=== PATIENT | male | born 1970 | race Caucasian/White ===

== ENCOUNTER 2025-02-12 15:59 | Inpatient (IN) | payer OTHER, SELFPAY ==
--- NOTE | 2025-02-11 14:02 | PAT.ANE_ITS ---
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 When Was Last Pacemaker Check QUESTION #4 FULL TEXT: You/Your Family Experience fever (hyperthermia) with Anesthesia Last Oral Intake Last Oral intake: Last Oral Intake NPO since Meds taken in AM with sips of water? Meds patient instructed to take am of surgery PONV PONV - retail beauty specialist: PONV - retail beauty specialist Female No 02/10/25 12:12 HX of Motion Sickness No 02/10/25 12:12 HX of N/V After Surgery No 02/10/25 12:12 Non-Smoker Yes 02/10/25 12:12 Duration of Surgery greater Yes 02/10/25 12:12 than 60 minutes Number of Risk Factors 2 02/10/25 12:12 PONV Score Moderate Risk 02/10/25 12:12 Respiratory Assessment Respiratory Assessment - retail beauty specialist: Respiratory Tract Infection Hx - retail beauty specialist Hx Respiratory Tract Infection No 02/10/25 12:12 STOP Sleep Apnea STOP Sleep Apnea - retail beauty specialist: STOP Sleep Apnea - retail beauty specialist Hx Hypertension Yes: NEVER MEDICATED 02/10/25 12:12 Hx Sleep Apnea No 02/10/25 12:12 CPAP BIPAP Do you snore loudly (louder Yes 02/10/25 12:12 than talking or can be heard Do you often feel tired/ No 02/10/25 12:12 fatigued/ sleepy during daytime? Has anyone observed you stop Yes 02/10/25 12:12 breathing during sleep? STOP Results Positive 02/10/25 12:12 QUESTION #5 FULL TEXT : Do you snore loudly (louder than talking or can be heard through closed doors)? 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 Specify any problems Hx of Preganancy in last 3 N/A 02/10/25 12:12 Months Nurse Filling Out Transfusion DSCHRIBER 02/10/25 12:12 & Questions: Date: 02/10/25 02/10/25 12:12 Time: 12:15 02/10/25 12:12 Patient unable to answer at this time (ie. confused, unrespo /Reproduction History /Reproductive History - retail beauty specialist: /Reproductive Hx- retail beauty specialist Hx Now No 02/10/25 12:12 Gestational Age (in weeks): EDC: Hx Hx Para Hx Section SAB No 02/10/25 12:12 PFSH Medical History (Updated 02/10/25 @ 12:22 by Terrie Caldwell) Wears glasses Bladder disease Restless legs Shortness of breath on exertion Non-smoker Leg cramps History of pain when walking History of edema Hypertension Home Medications ?Medication ?Instructions ?Recorded ?Last Taken ?Type NK 02/10/25 Unknown History Allergy/AdvReac Type Severity Reaction Status Date / Time No Known Allergies Allergy Verified 02/10/25 12:10 Surgical History (Updated 02/10/25 @ 12:22 by Terrie Caldwell) No history of previous surgery Social History Smoking Status: Never smoker Audit: Pertinent Findings Pertinent Findings EKG Perinent findings: February 10, 2025. Sinus rhythm. Probable LAE. Borderline left axis deviation. RSR' in V1 and V2. Additional pertinent findings: February 10, 2025. Creatinine is 2.39 Recommendation Anesthesia Recommendation Anesthesia recommendation: OPTIMIZED for anesthesia
[2025-02-12] VITALS (17 sets, daily range): BP systolic 76–185; BP diastolic 40–96; PULSE 63–90; RESP 14–18; TEMP 36.1–36.9; O2SAT 85–100; BMI 36.1
[2025-02-12] MEDS: Lactated Ringers 1,000 ML 15 ML IV (11:13)
--- NOTE | 2025-02-12 11:56 | PRE.ANES_ITS ---
ASA Classification* ASA Classification ASA Classification: 2 Assessment & Plan Anesthesia* Anesthesia Assessment Anesthesia Assessment: Discussed sedation and/or anesthesia options, risks, benefits, and alternatives with patient/parents/legal guardian/POA. Questions invited. The patient/parents/legal guardian/POA seems to understand and agrees to proceed with anesthesia plan. Reviewed the physical assessment, medical history, allergy history and patient home medications list prior to surgery/procedure/anesthetic and documented any changes. Performed airway and anesthesia risk assessments. Anesthesia Type Anesthesia Type: General History Source History Obtained from:: Patient and Chart Anesthesia Focused Assessment* Temperature: 98.0 F Pulse Rate: 63 Blood Pressure: 185/96 Respiratory Rate: 16 Pulse Ox: 100 Oxygen Delivery Method: Room Air Airway Assessment Mouth opens: >3 cm Mallampati Score: III Teeth Condition: Intact and Missing (Patient is missing right upper molar. 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 When Was Last Pacemaker Check QUESTION #4 FULL TEXT: You/Your Family Experience fever (hyperthermia) with Anesthesia Last Oral Intake Last Oral intake: Last Oral Intake NPO since 23:00 02/12/25 11:00 Meds taken in AM with sips of No 02/12/25 11:00 water? Meds patient instructed to take am of surgery PONV PONV - registered land surveyor: PONV - registered land surveyor Female No 02/10/25 12:12 HX of Motion Sickness No 02/10/25 12:12 HX of N/V After Surgery No 02/10/25 12:12 Non-Smoker Yes 02/10/25 12:12 Duration of Surgery greater Yes 02/10/25 12:12 than 60 minutes Number of Risk Factors 2 02/10/25 12:12 PONV Score Moderate Risk 02/10/25 12:12 Height & Weight Height & Weight: Anesthesia: Height & Weight Height 5 ft 6 in 02/12/25 11:00 Weight: 101.437 kg 02/12/25 11:00 Body Mass Index (BMI) 36.1 02/12/25 11:00 Respiratory Assessment Respiratory Assessment - registered land surveyor: Respiratory Tract Infection Hx - registered land surveyor Hx Respiratory Tract Infection No 02/10/25 12:12 STOP Sleep Apnea STOP Sleep Apnea - registered land surveyor: STOP Sleep Apnea - registered land surveyor Hx Hypertension Yes: NEVER MEDICATED 02/10/25 12:12 Hx Sleep Apnea No 02/10/25 12:12 CPAP BIPAP Do you snore loudly (louder Yes 02/10/25 12:12 than talking or can be heard Do you often feel tired/ No 02/10/25 12:12 fatigued/ sleepy during daytime? Has anyone observed you stop Yes 02/10/25 12:12 breathing during sleep? STOP Results Positive 02/10/25 12:12 QUESTION #5 FULL TEXT : Do you snore loudly (louder than talking or can be heard through closed doors)? Tobacco Use History Tobacco Use History - registered land surveyor: Tobacco Use History - registered land surveyor Tobacco Use Smoking Status Never smoker 02/10/25 12:12 Hx Tobacco Use No 02/10/25 12:12 Years Smoking Packs Smoked per Day Smoking Cessation Date was within the last 15 years Hx Smoking Cessation Date Hx Smoking Cessation Counseling Hematologic Medial History Hematologic Hx - registered land surveyor: Hematologic Medical Hx - scale shooter Hx of Blood Transfusion No 02/10/25 12:12 Hx of Transfusion in last 3 No 02/10/25 12:12 Months Date of Last Transfusion (if within last 3 months) Ever experience any problems No 02/10/25 12:12 with transfusion(s)? Specify any problems Hx of Preganancy in last 3 N/A 02/10/25 12:12 Months Nurse Filling Out Transfusion DSCHRIBER 02/10/25 12:12 & Questions: Date: 02/10/25 02/10/25 12:12 Time: 12:15 02/10/25 12:12 Patient unable to answer at this time (ie. confused, unrespo /Reproduction History /Reproductive History - registered land surveyor: /Reproductive Hx- registered land surveyor Hx Now No 02/10/25 12:12 Gestational Age (in weeks): EDC: Hx Hx Para Hx Section SAB No 02/10/25 12:12 Active Medications Active Medications: Current Medications Generic Name Dose Route Start Last Admin Trade Name Freq PRN Reason Stop Dose Admin Lactated Ringer's 1,000 mls @ 15 mls/hr 02/12/25 11:00 02/12/25 11:13 IV 15 mls/hr .Q48H ANGIE Administration PFSH Medical History Wears glasses Bladder disease Restless legs Shortness of breath on exertion Non-smoker Leg cramps History of pain when walking History of edema Hypertension Home Medications ?Medication ?Instructions ?Recorded ?Last Taken ?Type NK 02/10/25 Unknown History Allergy/AdvReac Type Severity Reaction Status Date / Time No Known Allergies Allergy Verified 02/12/25 10:59 Surgical History No history of previous surgery no surgical history Social History Smoking Status: Never smoker Review of Systems (Anesthesia) ROS Narrative System reviewed and no additional complaints, except as documented.
[2025-02-12] MEDS: Midazolam 2 MG/2 ML Syringe IV (12:24)
[2025-02-12] MEDS: Lidocaine 1% (5 ml sdv) 5 ML Vial IV (12:30)
--- NOTE | 2025-02-12 12:30 | BLA_PTH ---
PATIENT: ALEXSANDRA DIETZ LOC: [facility] U#:[id number] AGE/SX: 54/M ROOM: [facility] [place] RE02/12/[address]: Dr. Juilo Bey MD : 1970 BED: 1 DIS: 02/14/2025 SPEC #: [id number] RECD: 02/15/25 07:24 STATUS: MICHAEL REDahlia #: [id number] SERVANDO: 02/12/25 12:[address]: Julio Bey DEPT: SURGICAL PATHOLOGY RECD BY: Ede Sanchez ENTERED: 02/15/25 10:30 SP TYPE: BLADDER BX OTHR DR: No Primary Care Phys Tissues: A - Urinary bladder, NOS Procedures: Surgery Specimen Level V HEADER OPERATION: Cysto, transurethral resection bladder PRE-OP DIAGNOSIS: Large bladder mass TISSUE SUBMITTED: A- Bladder tumor MICROSCOPIC DIAGNOSIS A. Bladder tumor, transurethral resection: - Noninvasive papillary urothelial carcinoma, high grade - see Comment. - Lamina propria invasion is not identified. - Muscularis propria is not identified. COMMENT Selected slides/images were reviewed in intradepartmental consultation by Dr Daphney Marie and Dr Bjorn Santacruz ([facility] division, [facility]). MICROSCOPIC DESCRIPTION Slides are reviewed. GROSS DESCRIPTION A. Received in formalin labeled with the patient's name and date of . Designated as bladder tumor is a 172 g, 14.5 x 11.5 x 3.6 cm aggregate of jensen-pink to light brown-perales rubbery to friable tissue fragments and clotted blood. Systems Management Consultant sections are submitted in 10 cassettes. NC 02/15/2025 CPT:[id number]
[2025-02-12] MEDS: Cefazolin 1 GM/5 ML Vial 2 GM IV (12:35)
[2025-02-12] MEDS: Lactated Ringers 2,000 ML 2000 ML IV (13:39)
[2025-02-12] MEDS: fentaNYL 100 MCG/2 ML Ampul 200 MCG IV (13:42)
--- NOTE | 2025-02-12 16:03 | PCM.OPRPT ---
Operative Report (Standard) Operative Information Date of Procedure: 02/12/25 Pre-Operative Diagnosis: Very large bladder tumor Post-Operative Diagnosis: The same Surgery/Procedure Performed: Resection of the tumor over 7 cm in size, difficult case extra time terrazzo worker helper: No Type of Anesthesia: General RN Documented Start/Stop Times: Operation Date: 02/12/25 12:30 Case Time Into Pre-Op 02/12/25 10:45 Anesthesia Start 02/12/25 12:24 Into Room 02/12/25 12:24 Procedure Start 02/12/25 12:40 Procedure End 02/12/25 15:53 Anesthesia End 02/12/25 16:03 Out of Room 02/12/25 16:03 Procedure Start Time: 12:40 Procedure Stop Time: 16:04 Select all DRAINS/GRAFTS/IMPLANTS that apply: None Estimated Blood Loss: 500 cc Specimen collected: Yes Description of specimen(s) removed: Large bladder tumor Description of surgery: This is a 54-year-old male who unfortunately has been bleeding for about 5 years now and has finally sought medical attention on the office a did an ultrasound and could see extremely large mass within the bladder difficult to tell if this mass was invasive into the bladder muscle or was just a very large papillary tumor I suspected the very large papillary tumor so again attempted do a complete resection of this tumor as long as it is safe. Patient was taken back to the operating room and underwent a general anesthetic with intubation and paralyzation and then went into the bladder with a 26 Spanish continuous-flow resectoscope essentially he had a papillary tumor that was coming from the right lateral wall left lateral wall and anterior bladder neck it was all extending into the middle of the bladder started off by resecting from the middle of the bladder towards the patient's left took a long time was able to resect all the tumor coming off the left side when I got down to the muscle it did not appear to be in muscle invasive just extremely large nonmuscle invasive bladder cancer and then I started resection on the right side and he worked my way all the way into the anterior bladder and was able to resect the entire tumor and then there is also tumor within the prostatic fossa so the resected tumor out from within the prostatic fossa cauterized is much as possible did have a lot of blood loss because a long case extremely long difficult case resecting a lot of tissue but in the end I felt like it resected the entire all the major tumors completely with a pry bring him back for a second look resection in a few weeks and 24 Spanish catheter was put in the bladder and continuous bladder irrigation he was taken back to the PACU in stable condition and will admit him to the hospital for irrigation after extremely long resection extremely long time to resect took several hours Surgical Findings: Extremely large tumor in the bladder multiple areas extensively covering the bladder resected completely Complications Complications: No Admit VTE Documentation VTE Present on Admission: No VTE Mechan Device Prophylaxis: SCD's VTE Pharm Prophylaxis ordered?: No
--- NOTE | 2025-02-12 16:13 | PCM.POST.ANE ---
Anesthesia: Postop Eval I Current Vital Signs Temperature: 97.0 F Pulse Rate: 76 Blood Pressure: 80/43 Respiratory Rate: 16 Pulse Ox: 95 Oxygen Delivery Method: Room Air Assessment Airway patent: Yes Spontaneous unlabored respirations: Yes Mental status: Awake nausea: No Vomiting: No Anesthesia Complication: No Fluid Hydration Crystalloid volume administer (ml): 1,700 Total IV fluid infused: 1,700 Progress Note Anesthesia document: Postop Eval 1 completed: Yes
[2025-02-12] MEDS: LACTATED RINGERS 500 ML 999 ML IV (16:15)
[2025-02-12] MEDS: 0.9% Normal Saline (1000mL) 1,000 ML 125 ML IV (18:20)
--- NOTE | 2025-02-12 21:29 | POSTOPAN2_ITS ---
Anesthesia Postop Eval I Sum Postop Eval Completion status Anesthesia document: Postop Eval 1 completed: Yes Anesthesia Postop Eval I Summary Anesthesia Postop Eval I Summary: Anesthesia Postop Eval I: Assessment Summary Airway patent Yes 02/12/25 16:14 [email or web address] Spontaneous unlabored Yes 02/12/25 16:14 PERSONNEL [email or web address] respirations Mental status Awake 02/12/25 16:14 [email or web address] nausea No 02/12/25 16:14 [email or web address] Vomiting No 02/12/25 16:14 PERSONNEL [email or web address] Anesthesia Postop Eval I: Fluid Summary Crystalloid volume administer 1,700 02/12/25 16:14 [email or web address] (ml) Colloids volume administered ( ml) Blood Product volume administered (ml) Total IV fluid infused 1,700 02/12/25 16:14 [email or web address] [email or web address] Anesthesia Postop Eval I: Summary Notes Anesthesia Complication No 02/12/25 16:14 [email or web address] Anesthesia Complication Comment: Post-operative progress note Anesthesia: Postop Eval II Evaluation Mental status: Awake and Calm Pain Level: 1 nausea: No Vomiting: No Complications Anesthesia Complication: No
--- NOTE | 2025-02-12 21:29 | PCM.POSTANE2 ---
Anesthesia Postop Eval I Sum Postop Eval Completion status Anesthesia document: Postop Eval 1 completed: Yes Anesthesia Postop Eval I Summary Anesthesia Postop Eval I Summary: Anesthesia Postop Eval I: Assessment Summary Airway patent Yes 02/12/25 16:14 HEALTH [email or web address] Spontaneous unlabored Yes 02/12/25 16:14 HEALTH CARE [email or web address] respirations Mental status Awake 02/12/25 16:14 HEALTH [email or web address] nausea No 02/12/25 16:14 HEALTH [email or web address] [email or web address] Vomiting No 02/12/25 16:14 HEALTH CARE [email or web address] Anesthesia Postop Eval I: Fluid Summary Crystalloid volume administer 1,700 02/12/25 16:14 HEALTH [email or web address] (ml) Colloids volume administered ( ml) Blood Product volume administered (ml) Total IV fluid infused 1,700 02/12/25 16:14 HEALTH CARE [email or web address] Anesthesia Postop Eval I: Summary Notes Anesthesia Complication No 02/12/25 16:14 HEALTH [email or web address] Anesthesia Complication Comment: Post-operative progress note Anesthesia: Postop Eval II Evaluation Mental status: Awake and Calm Pain Level: 1 nausea: No Vomiting: No Complications Anesthesia Complication: No
[2025-02-12] MEDS: Cefazolin 1 GM/50 ML BAG IV (21:57)
[2025-02-13 01:39] VITALS: BP 124/83; PULSE 85; RESP 16; TEMP 37.2; O2SAT 94
[2025-02-13] MEDS: 0.9% Normal Saline (1000mL) 1,000 ML 125 ML IV (02:22)
[2025-02-13] MEDS: Cefazolin 1 GM/50 ML BAG IV (05:29)
[2025-02-13 05:36] VITALS: BP 130/84; PULSE 83; RESP 16; TEMP 37.3; O2SAT 96
[2025-02-13 06:42] LABS: Hematocrit 27.7 % (40-54); Hemoglobin 9.4 g/dL (13.0-16.5); Immature Granulocytes Count 0.090 X10^3/uL (0.0-0.0); Mean Corp Hgb Conc 33.9 g/dL (32-36); Mean Corpuscular Volume 92.0 fL (80-94); Mean Platelet Vol. 9.5 fl (6.2-12.0); NRBC Flagged by Analyzer 0 % (0-5); Platelet Count 404 K/mm3 (150-450); RBC Distribution Width CV 13.3 % (11.6-14.6); RBC Distribution Width SD 45.0 fl (35.1-43.9); Red Blood Count 3.01 M/mm3 (4.6-6.2); White Blood Count 17.1 K/mm3 (4.4-11.0)
[2025-02-13 07:02] LABS: Anion Gap 12 (5-15); BUN 28 mg/dL (4-19); BUN/Creat Ratio 14.1 RATIO (10-20); Calcium,Total 8.2 mg/dL (7.6-11.0); Carbon Dioxide 20.6 mmol/L (21.0-32.0); Chloride 105 mmol/L (98-108); Estimated Creatinine Clearance 48.61 ml/min (50-250); Glucose 147 mg/dL (70-99); Potassium 4.3 mmol/L (3.3-5.1)
--- NOTE | 2025-02-13 07:34 | PN.URO_ITS ---
Subjective Subjective Status post resection of extremely large mass in his bladder that was bladder cancer, continue with irrigation Hep-Lock fluids and start Lovenox he can ambulate with irrigation hopefully tomorrow will do a voiding trial. Objective Data Objective Data Vital Signs: Vital Signs Temp Pulse Resp BP Pulse Ox O2 Del Method O2 Flow Rate 99.2 F H 83 16 130/84 H 96 Room Air 2 02/13/25 05:36 02/13/25 05:36 02/13/25 05:36 02/13/25 05:36 02/13/25 05:36 02/13/25 05:36 02/12/25 17:00 Oxygen Flow Rate (L/min) 2 Oxygen Delivery Method Room Air Weight: 101.437 kg Body Mass Index (BMI) 36.1 Intake & Output: Intake and Output for Last 24 Hours 02/11/25 02/12/25 02/13/25 23:59 23:59 23:59 Intake Total 2150 / 2150 2350 / 2350 Output Total 2400 / 2400 1500 / 1500 Balance -250 / -250 850 / 850 Lab / Micro Data 02/13/25 06:06 02/13/25 06:06 Labs: Laboratory Results - last 24 hr 02/13/25 06:06: WBC 17.1 H, RBC 3.01 L, Hgb 9.4 L, Hct 27.7 L, MCV 92.0, MCH 31.2, MCHC 33.9, RDW Std Deviation 45.0 H, RDW Coeff of Marial[place] 13.3, Plt Count 404, MPV 9.5, Immature Gran % (Auto) 0.500, Neut % (Auto) 83.1 H, Lymph % (Auto) 9.8 L, [place] % (Auto) 6.5, Eos % (Auto) 0.0, Baso % (Auto) 0.1, Absolute Neuts (auto) 14.2 H, Absolute Lymphs (auto) 1.68, Nucleated RBC % 0, Sodium 137, Potassium 4.3, Chloride 105, Carbon Dioxide 20.6 L, Anion Gap 12, BUN 28 H, Creatinine 1.96 H, Estim Creat Clear Calc 48.61 L, Est GFR (MDRD) Non-Af 40 L, BUN/Creatinine Ratio 14.1, Glucose 147 H, Calcium 8.2
[2025-02-13 08:56] VITALS: O2SAT 96
[2025-02-13 09:35] VITALS: BP 125/80; PULSE 88; RESP 16; TEMP 36.9; O2SAT 96
--- NOTE | 2025-02-13 10:30 | CASEMGMT ---
GISELLA VARGAS Assessment Face to Face with patient for initial transition planning/care coordination assessment. GISELLA VARGAS introduced self and role at [facility], pt voices understanding. Pt is A&Ox4 and is resting comfortably in the chair and is calm. Care providers, pharmacy, and demographics verified. PCP: No PCP - Provider list given Specialists: Maida Monroe Pharmacy: [facility] Insurance: IBA Prescription Benefit: None - Educated about free services such as Good Rx LNOK: Trisha Kimo (W) Living Arrangements: Pt lives with his and 2 children (Ages 15 and 17) in a single story home with a total of 25 steps to get into the home. Pt states that he is indep and denies concerns regarding managing the steps when he gets home. ADLs/IADLs: See above. Transportation: Self, DME: Denies HHC/SNF: Denies Pt?s goal: Home Plan: Home with family once medically ready, follow for rx costs. Otherwise, pt denies any needs and states that he feels safe with this plan. Soniya Robb RN, CM
[2025-02-13 15:20] VITALS: BP 149/89; PULSE 81; RESP 16; TEMP 37.1; O2SAT 98
[2025-02-13 21:53] VITALS: BP 120/73; PULSE 89; RESP 16; TEMP 37.2; O2SAT 97
[2025-02-14 03:32] VITALS: BP 132/74; PULSE 86; RESP 18; TEMP 37.1; O2SAT 96
[2025-02-14 07:17] VITALS: O2SAT 95
[2025-02-14 07:34] LABS: Hematocrit 25.7 % (40-54); Hemoglobin 8.4 g/dL (13.0-16.5); Immature Granulocytes Count 0.040 X10^3/uL (0.0-0.0); Mean Corp Hgb Conc 32.7 g/dL (32-36); Mean Corpuscular Volume 93.5 fL (80-94); Mean Platelet Vol. 9.8 fl (6.2-12.0); NRBC Flagged by Analyzer 0 % (0-5); Platelet Count 389 K/mm3 (150-450); RBC Distribution Width CV 13.4 % (11.6-14.6); RBC Distribution Width SD 45.7 fl (35.1-43.9); Red Blood Count 2.75 M/mm3 (4.6-6.2); White Blood Count 11.0 K/mm3 (4.4-11.0)
[2025-02-14 07:42] VITALS: BP 134/81; PULSE 60; RESP 16; TEMP 36.5; O2SAT 100
[2025-02-14 07:52] LABS: Anion Gap 10 (5-15); BUN 23 mg/dL (4-19); BUN/Creat Ratio 14.3 RATIO (10-20); Calcium,Total 8.5 mg/dL (7.6-11.0); Carbon Dioxide 24.3 mmol/L (21.0-32.0); Chloride 109 mmol/L (98-108); Estimated Creatinine Clearance 60.69 ml/min (50-250); Glucose 101 mg/dL (70-99); Potassium 3.9 mmol/L (3.3-5.1)
--- NOTE | 2025-02-14 08:55 | DS.PCM_ITS ---
Providers Date of Admission: 02/12/25 Date of Discharge: 02/14/25 Primary Care Physician: Alisha Primary Care Phys Diagnosis Discharge Diagnosis (1) Bladder cancer: Status: Acute Code(s): C67.9 - Malignant neoplasm of bladder, unspecified Medications at Discharge Home Medications ciprofloxacin HCl 500 mg tablet (Cipro) 500 mg PO BID #14 tabs 02/14/25 oxycodone 5 mg tablet 5 mg PO Q6H PRN pain 3 days #10 tabs 02/14/25 Hospital Course Summary of Care Provided Hospital Course: 54-year-old male was found to have an extremely large bladder tumor, he underwent a transurethral resection of this tumor took several hours on Saturday he stayed with a catheter for irrigation this morning we remove the catheter as long as he is able to urinate okay he can go home today without the catheter with antibiotics and some mild pain medicine and follow-up in my office for further care Weight / BMI Weight Weight: 101.437 kg Body Mass Index (BMI) 36.1 ABG / Lab / Microbiology Data 02/14/25 06:20 02/14/25 06:20 Laboratory: Laboratory Results - last 24 hr 02/14/25 06:20: WBC 11.0, RBC 2.75 L, Hgb 8.4 L, Hct 25.7 L, MCV 93.5, MCH 30.5, MCHC 32.7, RDW Std Deviation 45.7 H, RDW Coeff of Marialuisa 13.4, Plt Count 389, MPV 9.8, Immature Gran % (Auto) 0.400, Neut % (Auto) 69.7, Lymph % (Auto) 19.5, [place] % (Auto) 7.3, Eos % (Auto) 2.8, Baso % (Auto) 0.3, Absolute Neuts (auto) 7.7, Absolute Lymphs (auto) 2.15, Nucleated RBC % 0, Sodium 143, Potassium 3.9, C hloride 109 H, Carbon Dioxide 24.3, Anion Gap 10, BUN 23 H, Creatinine 1.57 H, Estim Creat Clear Calc 60.69, Est GFR (MDRD) Non-Af 52 L, BUN/Creatinine Ratio 14.3, Glucose 101 H, Calcium 8.5 D/C Instructions DC O2, CPAP, BIPAP Needs Home O2 Discharge instructions: No Meaningful Use Info Meaningful Use Meaningful Use Diagnoses (Choose all that apply): None applicable Discharge Plan Admission Admit Date/Time: 02/12/25 15:59 Primary Reason for Your Visit: very large bladder cancer Attending Provider: Julio Bey Primary Care Provider: Care Physician,No Primary Discharge Orders/Prescriptions Prescriptions: New ciprofloxacin HCl [Cipro] 500 mg tablet 500 mg PO BID Qty: 14 0RF oxycodone 5 mg tablet 5 mg PO Q6H PRN (Reason: pain) 3 Days Qty: 10 0RF Referrals / Follow Up: Julio Bey MD [Med Staff - Active Staff] - Care Physician,No Primary [Primary Care Provider] - Disposition Disposition (needs filled in before D/C Order can be placed): Home, Self Care
[2025-02-14 14:00] VITALS: BP 156/86; PULSE 83; RESP 16; TEMP 37.1; O2SAT 97
== END 2025-02-14 14:20 | disposition home or self-care (01) | DRG 670 ==
LOC: ACINP 15:59 → MS3 17:05
PROVIDERS: Admitting Provider Urology; Referring Provider Urology; Visit Provider Urology
PROC: 0TBB8ZZ Excision of Bladder, Via Natural or Artificial Opening Endoscopic (ICD-10-PCS; principal; 2025-02-12 12:20)
DX: C67.9 Malignant neoplasm of bladder, unspecified (principal)
CPT/HCPCS: 36415; 80048; 85025; 88305; 88307; 94668; J2405

== ENCOUNTER → 2025-04-16 | Outpatient (CLI) | payer OTHER, SELFPAY ==
--- NOTE | 2025-04-16 08:00 | BLA_PTH ---
PATIENT: ALEXSANDRA DIETZ LOC: [facility] U#:[id number] AGE/SX: 54/M ROOM: RE04/16/[address]: Dr. Julio Bey MD : 1970 BED: DIS: 04/16/2025 SPEC #: [id number] RECD: 04/16/25 14:47 STATUS: MICHAEL REQ #: [id number] SERVANDO: 04/16/25 08:[address]: Julio Bey DEPT: SURGICAL PATHOLOGY RECD BY: Ede Sanchez ENTERED: 04/16/25 15:12 SP TYPE: BLADDER BX OTHR DR: No Primary Care Phys Tissues: A - Urinary bladder, NOS Procedures: Surgery Specimen Level IV HEADER OPERATION: Transurethral resection of bladder tumor PRE-OP DIAGNOSIS: Malignant neoplasm of overlapping sites of bladder, neoplasm of uncertain behavior of bladder TISSUE SUBMITTED: A- Bladder tumor MICROSCOPIC DIAGNOSIS A. Bladder, transurethral resection of bladder tumor: - Invasive high grade urothelial carcinoma. - Lamina propria involved. - Muscularis propria not identified. MICROSCOPIC DESCRIPTION Slides are reviewed. GROSS DESCRIPTION A. Received in formalin labeled with the patient's name and date of . Designated as bladder cancer is a 3.7 x 2.7 x 0.5 cm aggregate of jensen-pink to red, irregular cauterized tissue fragments and clotted blood. Also within the container is a 0.7 x 0.5 cm opaque portion of apparent hardware. The specimen is entirely submitted, except for the portion of hardware, in 3 cassettes. [id number]
--- OUTSIDE RECORDS SUMMARY | 2025-04-16 16:56 | XMS RPT_ITS | CCD ---
Author Organization [facility] Care Team Providers Care Papeterie Table Assembler Name Role Phone ART FELDMAN, DR JULIO PRITCHARD Attending Elli Cordova MD, Dr. Julio Pritchard Admit Provider Art FELDMAN, Dr. Julio Pritchard Attending Provider Art FELDMAN, Dr. Julio Pritchard Referring Provider Care Physician, No Primary Primary Care Provider Unavailable Julio Cordova Admitting Unavailable Julio Cordova Attending Unavailable Julio Cordova Referring Unavailable Care Physician, No Primary Primary Care Unava ilable Medications Current Medications Medication Drug Class(es) Dates Sig (Normalized) Sig (Original) ciprofloxacin 500 mg oral tablet (1 source) Quinolone Antimicrobial Start: 02-14-2025 take 1 tablet by mouth twice daily Ciprofloxacin Hcl (Cipro) 500 mg tablet Active 500 mg PO TWICE A DAY 14 0 February 14, 2025 12:00am oxyCODONE hydrochloride 5 mg oral tablet (1 source) Opioid Agonist Start: 02-14-2025 take 1 tablet by mouth every six hours as needed for pain Oxycodone 5 mg tablet Active 5 mg PO EVERY 6 HOURS as needed for pain 10 3 0 February 14, 2025 Malignant neoplasm of urinary bladder Malignant neoplasm of bladder, unspecified Problems Problem Classification Problem Date Documented Da te Episodic/Chronic Cancer of bladder (2 sources) Malignant tumor of urinary bladder; Translations: [Malignant neoplasm of bladder, unspecified] 02-14-2025 Chronic 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, [address] BUN/CRE Normal 10-20 [facility] Comment on above: Result Comment: Canc elled via OM: Order cancelled - Patient discharged Performed By: #### L 500.2500, L100.0100 #### [facility] [address] [place], [address] Calcium Normal 7.6-11.0 [facility] Comment on above: Result Comment: Canc elled via OM: Order cancelled - Patient discharged Performed By: #### L 500.2500, L100.0100 #### [facility] [address] [place], [address] CL Normal 98-108 [facility] Comment on above: Result Comment: Canc elled via OM: Order cancelled - Patient discharged Performed By: #### L 500.2500, L100.0100 #### [facility] [address] [place], [address] CO2 Normal 21.0-32.0 [facility] Comment on above: Result Comment: Canc elled via OM: Order cancelled - Patient discharged Performed By: #### L 500.2500, L100.0100 #### [facility] [address] [place], [address] CREAT,SERUM Normal 0.70-1.20 [facility] Comment on above: Result Comment: Canc elled via OM: Order cancelled - Patient discharged Performed By: #### L 500.2500, L100.0100 #### [facility] [address] [place], [address] eGFR Normal >60 [facility] Comment on above: Result Comment: Canc elled via OM: Order cancelled - Patient discharged Performed By: #### L 500.2500, L100.0100 #### [facility] [address] [place], [address] GAP Normal 5-15 [facility] Comment on above: Result Comment: Canc elled via OM: Order cancelled - Patient discharged Performed By: #### L 500.2500, L100.0100 #### [facility] [address] [place], [address] GLU Normal 70-99 [facility] Comment on above: Result Comment: Canc elled via OM: Order cancelled - Patient discharged Performed By: #### L 500.2500, L100.0100 #### [facility] [address] [place], [address] Potassium Normal 3.3-5.1 [facility] Comment on above: Result Comment: Canc elled via OM: Order cancelled - Patient discharged Performed By: #### L 500.2500, L100.0100 #### [facility] [address] [place], [address] Basic Metabolic Profile (BMP) Normal 133-145 [facility] Comment on above: Result Comment: Canc elled via OM: Order cancelled - Patient discharged Performed By: #### L 500.2500, L100.0100 #### [facility] [address] [place], [address] CBC W/Diff, Automatedon 09-0 -2024 Absolute Neut Normal 2.0-7.7 [facility] Comment on above: Result Comment: Canc elled via OM: Order cancelled - Patient discharged Performed By: #### L 500.2500, L100.0100 #### [facility] [address] [place], [address] HCT Normal 40-54 [facility] Comment on above: Result Comment: Canc elled via OM: Order cancelled - Patient discharged Performed By: #### L 500.2500, L100.0100 #### [facility] [address] [place], [address] HGB Normal 13.0-16.5 [facility] Comment on above: Result Comment: Canc elled via OM: Order cancelled - Patient discharged Performed By: #### L 500.2500, L100.0100 #### [facility] [address] [place], [address] MCH Normal 27.0-32.0 [facility] Comment on above: Result Comment: Canc elled via OM: Order cancelled - Patient discharged Performed By: #### L 500.2500, L100.0100 #### [facility] [address] [place], [address] MCHC Normal 32-36 [facility] Comment on above: Result Comment: Canc elled via OM: Order cancelled - Patient discharged Performed By: #### L 500.2500, L100.0100 #### [facility] [address] [place], [address] MCV Normal 80-94 [facility] Comment on above: Result Comment: Canc elled via OM: Order cancelled - Patient discharged Performed By: #### L 500.2500, L100.0100 #### [facility] [address] [place], [address] NEUT% Normal 47-70 [facility] Comment on above: Result Comment: Canc elled via OM: Order cancelled - Patient discharged Performed By: #### L 500.2500, L100.0100 #### [facility] [address] [place], [address] PLT Normal 150-450 [facility] Comment on above: Result Comment: Canc elled via OM: Order cancelled - Patient discharged Performed By: #### L 500.2500, L100.0100 #### [facility] [address] [place], [address] RBC Normal 4.6-6.2 [facility] Comment on above: Result Comment: Canc elled via OM: Order cancelled - Patient discharged Performed By: #### L 500.2500, L100.0100 #### [facility] [address] [place], [address] RDW CV Normal 11.6-14.6 [facility] Comment on above: Result Comment: Canc elled via OM: Order cancelled - Patient discharged Performed By: #### L 500.2500, L100.0100 #### [facility] [address] [place], [address] RDW SD Normal 35.1-43.9 [facility] Comment on above: Result Comment: Canc elled via OM: Order cancelled - Patient discharged Performed By: #### L 500.2500, L100.0100 #### [facility] [address] [place], [address] WBC Normal 4.4-11.0 [facility] Comment on above: Result Comment: Canc elled via OM: Order cancelled - Patient discharged Performed By: #### L 500.2500, L100.0100 #### [facility] [address] [place], [address] Absolute lymphocyte countOrd ered By: Julio Cordova on 02-14-2025 Lymphocytes Auto (Unsp spec) [#/Vol] 2.15 10*3/uL 0.83-4.51 [facility] Absolute neutrophil countOrd ered By: Julio Cordova on 02-14-2025 Neutrophils (Bld) [#/Vol] 7.7 10*3/uL 2.0-7.7 [facility] Anion gap in Serum or Plasma Ordered By: Julio Cordova on 02-14-2025 Anion gap [Moles/Vol] 10 mmol/L 5-15 [facility] Automated lymphocyte count a s percentage of total leukocytesOrdered By: Julio Cordova on 02-14-2025 Lymphocytes/100 WBC Auto (Unsp spec) 19.5 % 19-41 [facility] BUN/creatinine ratioOrdered By: Julio Cordova on 02-14-2025 Urea nitrogen/Creatinine [Mass ratio] 14.3 mg/mg 10- [facility] Basic Metabolic Profile (BMP )on 02-14-2025 BUN/CRE 14.3 RATIO Normal - [facility] Comment on above: Performed By: #### L 100.0100, L500.2500 #### [facility] [address] [place], [address] Calcium [Mass/Vol] 8.5 mg/dL Normal 7.6-11.0 [facility] Comment on above: Performed By: #### L 100.0100, L500.2500 #### [facility] [address] [place], [address] Chloride [Moles/Vol] 109 mmol/L High 98-108 [facility] Comment on above: Performed By: #### L 100.0100, L500.2500 #### [facility] [address] [place], [address] CO2 [Moles/Vol] 24.3 mmol/L Normal 21.0-32.0 [facility] Comment on above: Performed By: #### L 100.0100, L500.2500 #### [facility] [address] [place], [address] Creatinine [Mass/Vol] 1.57 mg/dL High 0.70-1.20 [facility] Comment on above: Performed By: #### L 100.0100, L500.2500 #### [facility] [address] [place], [address] ECRCL 60.69 ml/min Normal 50-250 [facility] Comment on above: Performed By: #### L 100.0100, L500.2500 #### [facility] [address] [place], [address] GAP 10 Normal 5-15 [facility] Comment on above: Performed By: #### L 100.0100, L500.2500 #### [facility] [address] [place], [address] GFR/1.73 sq M.predicted among non-blacks MDRD (S/P/Bld) [Vol rate/Area] 52 mL/min/{1.73_m2} Low >60 [facility] Comment on above: Result Comment: mL/m in/1.73m2 CKD-EPI Creatinine Equation (2020) Performed By: #### L 100.0100, L500.2500 #### [facility] [address] [place], [address] Glucose [Mass/Vol] 101 mg/dL High 70-99 [facility] Comment on above: Performed By: #### L 100.0100, L500.2500 #### [facility] [address] [place], [address] Potassium [Moles/Vol] 3.9 mmol/L Normal 3.3-5.1 [facility] Comment on above: Performed By: #### L 100.0100, L500.2500 #### [facility] [address] [place], [address] Sodium [Moles/Vol] 143 mmol/L Normal 133-145 [facility] Comment on above: Performed By: #### L 100.0100, L500.2500 #### [facility] [address] [place], [address] Urea nitrogen [Mass/Vol] 23 mg/dL High 4-19 [facility] Comment on above: Performed By: #### L 100.0100, L500.2500 #### [facility] [address] [place], [address] Basophil percentageOrdered B y: Julio Cordova on 02-14-2025 Basophils/100 WBC (Bld) 0.3 % 0-1 [facility] CBC W/Diff, Automatedon Absolute Lymph 2.15 X10 3/uL Normal 0.83-4.51 [facility] Comment on above: Performed By: #### L 100.0100, L500.2500 #### [facility] [address] [place], [address] Absolute Neut 7.7 X10 3/uL Normal 2.0-7.7 [facility] Comment on above: Performed By: #### L 100.0100, L500.2500 #### [facility] [address] [place], [address] Basophils/100 WBC (Bld) 0.3 % Normal 0-1 [facility] Comment on above: Performed By: #### L 100.0100, L500.2500 #### [facility] [address] [place], [address] Eosinophils/100 WBC (Bld) 2.8 % Normal 0-5 [facility] Comment on above: Performed By: #### L 100.0100, L500.2500 #### [facility] [address] [place], [address] Erythrocyte distribution width (RBC) [Ratio] 13.4 % Normal 11.6-14.6 [facility] Comment on above: Performed By: #### L 100.0100, L500.2500 #### [facility] [address] [place], [address] Hematocrit (Bld) [Volume fraction] 25.7 % Low 40-54 [facility] Comment on above: Performed By: #### L 100.0100, L500.2500 #### [facility] [address] [place], [address] Hemoglobin (Bld) [Mass/Vol] 8.4 g/dL Low 13.0-16.5 [facility] Comment on above: Performed By: #### L 100.0100, L500.2500 #### [facility] [address] [place], [address] IG% 0.400 Normal 0.0-0.9 [facility] Comment on above: Result Comment: IG% - Immature Granulocytes (promyelocytes, myelocytes and metamyelocytes) > 1% indicates that a LEFT SHIFT is Present. Performed By: #### L 100.0100, L500.2500 #### [facility] [address] [place], [address] Lymphocytes/100 WBC (Bld) 19.5 % Normal 19-41 [facility] Comment on above: Performed By: #### L 100.0100, L500.2500 #### [facility] [address] [place], [address] MCH (RBC) [Entitic mass] 30.5 pg Normal 27.0-32.0 [facility] Comment on above: Performed By: #### L 100.0100, L500.2500 #### [facility] [address] [place], [address] MCHC (RBC) [Mass/Vol] 32.7 g/dL Normal 32-36 [facility] Comment on above: Performed By: #### L 100.0100, L500.2500 #### [facility] [address] [place], [address] MCV (RBC) [Entitic vol] 93.5 fL Normal 80-94 [facility] Comment on above: Performed By: #### L 100.0100, L500.2500 #### [facility] [address] [place], [address] Monocytes/100 WBC (Bld) 7.3 % Normal 0-10 [facility] Comment on above: Performed By: #### L 100.0100, L500.2500 #### [facility] [address] [place], [address] Neutrophils/100 WBC (Bld) 69.7 % Normal 47-70 [facility] Comment on above: Performed By: #### L 100.0100, L500.2500 #### [facility] [address] [place], [address] Nucleated RBC (Bld) [#/Vol] 0 10*3/uL Normal 0-5 [facility] Comment on above: Performed By: #### L 100.0100, L500.2500 #### [facility] [address] [place], [address] Platelet mean volume (Bld) [Entitic vol] 9.8 fL Normal 6.2-12.0 [facility] Comment on above: Performed By: #### L 100.0100, L500.2500 #### [facility] [address] [place], [address] Platelets (Bld) [#/Vol] 389 10*3/uL Normal 150-450 [facility] Comment on above: Performed By: #### L 100.0100, L500.2500 #### [facility] [address] [place], [address] RBC (Bld) [#/Vol] 2.75 10*6/uL Low 4.6-6.2 [facility] Comment on above: Performed By: #### L 100.0100, L500.2500 #### [facility] [address] [place], [address] RDW SD 45.7 fl High 35.1-43.9 [facility] Comment on above: Performed By: #### L 100.0100, L500.2500 #### [facility] [address] [place], [address] WBC (Bld) [#/Vol] 11.0 10*3/uL Normal 4.4-11.0 [facility] Comment on above: Performed By: #### L 100.0100, L500.2500 #### [facility] [address] [place], [address] Carbon dioxide, total [Moles /volume] in Central venous bloodOrdered By: Julio Cordova on 02-14-2025 CO2 [Moles/Vol] 24.3 mmol/L 21.0-32.0 [facility] Chloride assayOrdered By: Mariana Cordova on 02-14-2025 Chloride [Moles/Vol] 109 mmol/L High 98-108 [facility] Eosinophil percentageOrdered By: Julio Cordova on 02-14-2025 Eosinophils/100 WBC (Bld) 2.8 % 0-5 [facility] Erythrocyte distribution wid th ratioOrdered By: Julio Cordova on 02-14-2025 Erythrocyte distribution width (RBC) [Ratio] 13.4 % 11.6-14.6 [facility] Erythrocyte distribution wid th standard deviationOrdered By: Julio Cordova on 02-14-2025 Erythrocyte distribution width (RBC) [Ratio] 45.7 fl High 35.1-43.9 [facility] Glomerular filtration rate ( GFR) estimation/1.73 sq m using serum, plasma, or whole bOrdered By: Julio Cordova on 02-14-2025 GFR/1.73 sq M.predicted among non-blacks MDRD (S/P/Bld) [Vol rate/Area] 52 mL/min/{1.73_m2} Low >60 [facility] Comment on above: mL/min/1.73m2 CKD-EP I Creatinine Equation (2020) Hematocrit Auto (Bld) [Volum e fraction]Ordered By: Julio Cordova on 02-14-2025 Hematocrit (Bld) [Volume fraction] 25.7 % Low 40-54 [facility] Hemoglobin measurementOrdere d By: Julio Cordova on 02-14-2025 Hemoglobin (Bld) [Mass/Vol] 8.4 g/dL Low 13.0-16.5 [facility] Immature granulocytes/100 WB C Auto (Bld)Ordered By: Julio Cordova on 02-14-2025 Immature granulocytes/100 WBC (Bld) 0.400 % 0.0-0.9 [facility] Comment on above: IG% - Immature Granu locytes (promyelocytes, myelocytes and metamyelocytes) > 1% indicates that a LEFT SHIFT is Present. MCV (mean corpuscular volume ) determinationOrdered By: Julio Cordova on 02-14-2025 MCV (RBC) [Entitic vol] 93.5 fL 80-94 [facility] Mean corpuscular hemoglobin (MCH) determinationOrdered By: Julio Cordova on 02-14-2025 MCH (RBC) [Entitic mass] 30.5 pg 27.0-32.0 [facility] Mean corpuscular hemoglobin concentration (MCHC) determinationOrdered By: Julio Cordova on 02-14-2025 MCHC (RBC) [Mass/Vol] 32.7 g/dL 32-36 [facility] Mean platelet volume determi nationOrdered By: Julio Cordova on 02-14-2025 Platelet mean volume (Bld) [Entitic vol] 9.8 fL 6.2-12.0 [facility] Monocyte percentageOrdered B y: Julio Cordova on 02-14-2025 Monocytes/100 WBC (Bld) 7.3 % 0-10 [facility] Neutrophil percentageOrdered By: Julio Cordova on 02-14-2025 Neutrophils/100 WBC (Bld) 69.7 % 47-70 [facility] Nucleated red blood cell per centageOrdered By: Julio Cordova on 02-14-2025 Nucleated RBC/100 WBC (Bld) [Ratio] 0 % 0-5 [facility] Platelet countOrdered By: Mariana Cordova on 02-14-2025 Platelets (Bld) [#/Vol] 389 10*3/uL 150-450 [facility] Potassium measurement (mass/ volume)Ordered By: Julio Cordova on 02-14-2025 Potassium (Unsp spec) [Mass/Vol] 3.9 mmol/L 3.3-5.1 [facility] RBC Auto (Bld) [#/Vol]Ordere d By: Julio Cordova on 02-14-2025 RBC (Bld) [#/Vol] 2.75 10*6/uL Low 4.6-6.2 [facility] Serum creatinine measurement (mass/volume)Ordered By: Julio Cordova on 02-14-2025 Creatinine [Mass/Vol] 1.57 mg/dL High 0.70-1.20 [facility] Serum glucose measurement (m ass/volume)Ordered By: Julio Cordova on 02-14-2025 Glucose [Mass/Vol] 101 mg/dL High 70-99 [facility] Serum or plasma calcium verena urement (mass/volume)Ordered By: Julio Cordova on 02-14-2025 Calcium [Mass/Vol] 8.5 mg/dL 7.6-11.0 [facility] Serum or plasma urea nitroge n measurement (mass/volume)Ordered By: Julio Cordova on 02-14-2025 Urea nitrogen [Mass/Vol] 23 mg/dL High 4-19 [facility] Sodium levelOrdered By: Julio Cordova on 02-14-2025 Sodium [Moles/Vol] 143 mmol/L 133-145 [facility] White blood cell (WBC) count Ordered By: Julio Cordova on 02-14-2025 WBC (Bld) [#/Vol] 11.0 10*3/uL 4.4-11.0 [facility] Basic Metabolic Profile (BMP )on 02-13-2025 BUN/CRE 14.1 RATIO Normal 10-20 [facility] Comment on above: Performed By: #### L 100.0100, L500.2500 #### [facility] [address] [place], [address] Calcium [Mass/Vol] 8.2 mg/dL Normal 7.6-11.0 [facility] Comment on above: Performed By: #### L 100.0100, L500.2500 #### [facility] [address] [place], [address] Chloride [Moles/Vol] 105 mmol/L Normal 98-108 [facility] Comment on above: Performed By: #### L 100.0100, L500.2500 #### [facility] [address] [place], [address] CO2 [Moles/Vol] 20.6 mmol/L Low 21.0-32.0 [facility] Comment on above: Performed By: #### L 100.0100, L500.2500 #### [facility] [address] [place], [address] Creatinine [Mass/Vol] 1.96 mg/dL High 0.70-1.20 [facility] Comment on above: Performed By: #### L 100.0100, L500.2500 #### [facility] [address] [place], [address] ECRCL 48.61 ml/min Low 50-250 [facility] Comment on above: Performed By: #### L 100.0100, L500.2500 #### [facility] [address] [place], [address] GAP 12 Normal 5-15 [facility] Comment on above: Performed By: #### L 100.0100, L500.2500 #### [facility] [address] [place], [address] GFR/1.73 sq M.predicted among non-blacks MDRD (S/P/Bld) [Vol rate/Area] 40 mL/min/{1.73_m2} Low >60 [facility] Comment on above: Result Comment: mL/m in/1.73m2 CKD-EPI Creatinine Equation (2020) Performed By: #### L 100.0100, L500.2500 #### [facility] [address] [place], [address] Glucose [Mass/Vol] 147 mg/dL High 70-99 [facility] Comment on above: Performed By: #### L 100.0100, L500.2500 #### [facility] [address] [place], [address] Potassium [Moles/Vol] 4.3 mmol/L Normal 3.3-5.1 [facility] Comment on above: Performed By: #### L 100.0100, L500.2500 #### [facility] [address] [place], [address] Sodium [Moles/Vol] 137 mmol/L Normal 133-145 [facility] Comment on above: Performed By: #### L 100.0100, L500.2500 #### [facility] [address] [place], [address] Urea nitrogen [Mass/Vol] 28 mg/dL High 4-19 [facility] Comment on above: Performed By: #### L 100.0100, L500.2500 #### [facility] [address] [place], [address] CBC W/Diff, Automatedon 09-0 6-2024 Absolute Lymph 1.68 X10 3/uL Normal 0.83-4.51 [facility] Comment on above: Performed By: #### L 100.0100, L500.2500 #### [facility] [address] [place], [address] Absolute Neut 14.2 X10 3/uL High 2.0-7.7 [facility] Comment on above: Performed By: #### L 100.0100, L500.2500 #### [facility] [address] [place], [address] Basophils/100 WBC (Bld) 0.1 % Normal 0-1 [facility] Comment on above: Performed By: #### L 100.0100, L500.2500 #### [facility] [address] [place], [address] Eosinophils/100 WBC (Bld) 0.0 % Normal 0-5 [facility] Comment on above: Performed By: #### L 100.0100, L500.2500 #### [facility] [address] [place], [address] Erythrocyte distribution width (RBC) [Ratio] 13.3 % Normal 11.6-14.6 [facility] Comment on above: Performed By: #### L 100.0100, L500.2500 #### [facility] [address] [place], [address] Hematocrit (Bld) [Volume fraction] 27.7 % Low 40-54 [facility] Comment on above: Performed By: #### L 100.0100, L500.2500 #### [facility] [address] [place], [address] Hemoglobin (Bld) [Mass/Vol] 9.4 g/dL Low 13.0-16.5 [facility] Comment on above: Performed By: #### L 100.0100, L500.2500 #### [facility] [address] [place], [address] IG% 0.500 Normal 0.0-0.9 [facility] Comment on above: Result Comment: IG% - Immature Granulocytes (promyelocytes, myelocytes and metamyelocytes) > 1% indicates that a LEFT SHIFT is Present. Performed By: #### L 100.0100, L500.2500 #### [facility] [address] [place], [address] Lymphocytes/100 WBC (Bld) 9.8 % Low 19-41 [facility] Comment on above: Performed By: #### L 100.0100, L500.2500 #### [facility] [address] [place], [address] MCH (RBC) [Entitic mass] 31.2 pg Normal 27.0-32.0 [facility] Comment on above: Performed By: #### L 100.0100, L500.2500 #### [facility] [address] [place], [address] MCHC (RBC) [Mass/Vol] 33.9 g/dL Normal 32-36 [facility] Comment on above: Performed By: #### L 100.0100, L500.2500 #### [facility] [address] [place], [address] MCV (RBC) [Entitic vol] 92.0 fL Normal 80-94 [facility] Comment on above: Performed By: #### L 100.0100, L500.2500 #### [facility] [address] [place], [address] Monocytes/100 WBC (Bld) 6.5 % Normal 0-10 [facility] Comment on above: Performed By: #### L 100.0100, L500.2500 #### [facility] [address] [place], [address] Neutrophils/100 WBC (Bld) 83.1 % High 47-70 [facility] Comment on above: Performed By: #### L 100.0100, L500.2500 #### [facility] [address] [place], [address] Nucleated RBC (Bld) [#/Vol] 0 10*3/uL Normal 0-5 [facility] Comment on above: Performed By: #### L 100.0100, L500.2500 #### [facility] [address] [place], [address] Platelet mean volume (Bld) [Entitic vol] 9.5 fL Normal 6.2-12.0 [facility] Comment on above: Performed By: #### L 100.0100, L500.2500 #### [facility] [address] [place], [address] Platelets (Bld) [#/Vol] 404 10*3/uL Normal 150-450 [facility] Comment on above: Performed By: #### L 100.0100, L500.2500 #### [facility] [address] [place], [address] RBC (Bld) [#/Vol] 3.01 10*6/uL Low 4.6-6.2 [facility] Comment on above: Performed By: #### L 100.0100, L500.2500 #### [facility] [address] [place], [address] RDW SD 45.0 fl High 35.1-43.9 [facility] Comment on above: Performed By: #### L 100.0100, L500.2500 #### [facility] [address] [place], [address] WBC (Bld) [#/Vol] 17.1 10*3/uL High 4.4-11.0 [facility] Comment on above: Performed By: #### L 100.0100, L500.2500 #### [facility] [address] [place], [address] MR/POSTOP.ANEon 02-12-2025 MR/POSTOP.[facility] Medical Records Department [address] [place] [address] Anesthesia Postop Eval I 02/12/25 1613 MR#: [id number] Acct: [id number] Name: ALEXSANDRA DIETZ Rep #: [id number] : 1970 54 From: Tim Zazueta CRNA PCP: Care Physician,No Primary Status:ADM IN Y Race: C Location: [place] [address] Anesthesia: Postop Eval I Current Vital Signs Temperature: 97.0 F Pulse Rate: 76 Blood Pressure: 80/43 Respiratory Rate: 16 Pulse Ox: 95 Oxygen Delivery Method: Room Air Assessment Airway patent: Yes Spontaneous unlabored respirations: Yes Mental status: Awake nausea: No Vomiting: No Anesthesia Complication: No Fluid Hydration Crystalloid volume administer (ml): 1,700 Total IV fluid infused: 1,700 Progress Note Anesthesia document: Postop Eval 1 completed: Yes 02/12/25 1614 Date Tim Zazueta CRISTÓBAL Bishopigner Signature: Date CC: Signed Normal [facility] MR/[id number] 02-12-2025 MR/POSTOPAN2 [facility] Medical Records Department [address] [place] [place] [address] Anesthesia Postop Eval II 02/12/252128 MR#: [id number] Acct: [id number] Name: ALEXSANDRA DIETZ Rep #: [id number] : 1970 54 From: Branden Harris MD PCP: Care Physician,No Primary Status:ADM IN Y Race: C Location: [facility] [place] [id number] Anesthesia Postop Eval I Sum Postop Eval Completion status Anesthesia document: Postop Eval 1 completed: Yes Anesthesia Postop Eval I Summary Anesthesia Postop Eval I Summary: Anesthesia Postop Eval I: Assessment Summary Airway patent Yes 02/12/25 16:14 COLLECTIONS [email or web address] Spontaneous unlabored Yes 02/12/25 16:14 COLLECTIONS CURATOR.PKEL respirations Mental status Awake 02/12/25 16:14 COLLECTIONS CURATOR.PKEL nausea No 02/12/25 16:14 COLLECTIONS CURATOR.PKEL Vomiting No 02/12/25 16:14 COLLECTIONS CURATOR.PKEL Anesthesia Postop Eval I: Fluid Summary Crystalloid volume administer 1,700 02/12/25 16:14 COLLECTIONS CURATOR.PKEL (ml) Colloids volume administered ( ml) Blood Product volume administered (ml) Total IV fluid infused 1,700 02/12/25 16:14 COLLECTIONS CURATOR.PKEL Anesthesia Postop Eval I: Summary Notes Anesthesia Complication No 02/12/25 16:14 COLLECTIONS CURATOR.PKEL Anesthesia Complication Comment: Post-operative progress note Anesthesia: Postop Eval II Evaluation Mental status: Awake and Calm Pain Level: 1 nausea: No Vomiting: No Complications Anesthesia Complication: No 02/12/252128 Date Branden Cunningham Signature: Date CC: Signed Normal [facility] Operative Reporton 5 Operative Report [facility] Medical Records Department [address] [place] [address] Operative Report 02/12/25 1603 MR#: [id number] Acct: [id number] Name: ALEXSANDRA DIETZ Rep #: [id number] : 1970 54 From: Julio Cordova MD PCP: Care Physician,No Primary Status:ADM IN Location: [place] [address] Operative Report (Standard) Operative Information Date of Procedure: 02/12/25 Pre-Operative Diagnosis: Very large bladder tumor Post-Operative Diagnosis: The same Surgery/Procedure Performed: Resection of the tumor over 7 cm in size, difficult case extra time automatic i threading machine feeder: No Type of Anesthesia: General RN Documented Start/Stop Times: Operation Date: 02/12/25 12:30 Case Time Into Pre-Op 02/12/25 10:45 Anesthesia Start 02/12/25 12:24 Into Room 02/12/25 12:24 Procedure Start 02/12/25 12:40 Procedure End 02/12/25 15:53 Anesthesia End 02/12/25 16:03 Out of Room 02/12/25 16:03 Procedure Start Time: 12:40 Procedure Stop Time: 16:04 Select all DRAINS/GRAFTS/IMPLAN TS that apply: None Estimated Blood Loss: 500 cc Specimen collected: Yes Description of specimen(s) removed: Large bladder tumor Description of surgery: This is a 54-year-old male who unfortunately has been bleeding for about 5 years now and has finally sought medical attention on the office a did an ultrasound and could see extremely large mass within the bladder difficult to tell if this mass was invasive into the bladder muscle or was just a very large papillary tumor I suspected the very large papillary tumor so again attempted do a complete resection of this tumor as long as it is safe. Patient was taken back to the operating room and underwent a general anesthetic with intubation and paralyzation and then went into the bladder with a 26 Liberian continuous-flow resectoscope essentially he had a papillary tumor that was coming from the right lateral wall left lateral wall and anterior bladder neck it was all extending into the middle of the bladder started off by resecting from the middle of the bladder towards the patient's left took a long time was able to resect all the tumor coming off the left side when I got down to the muscle it did not appear to be in muscle invasive just extremely large nonmuscle invasive bladder cancer and then I started resection on the right side and he worked my way all the way into the anterior bladder and was able to resect the entire tumor and then there is also tumor within the prostatic fossa so the resected tumor out from within the prostatic fossa cauterized is much as possible did have a lot of blood loss because a long case extremely long difficult case resecting a lot of tissue but in the end I felt like it resected the entire all the major tumors completely with a pry bring him back for a second look resection in a few weeks and 24 Liberian catheter was put in the bladder and continuous bladder irrigation he was taken back to the PACU in stable condition and will admit him to the hospital for irrigation after extremely long resection extremely long time to resect took several hours Surgical Findings: Extremely large tumor in the bladder multiple areas extensively covering the bladder resected completely Complications Complications: No Admit VTE Documentation VTE Present on Admission: No VTE Mechan Device Prophylaxis: SCD's VTE Pharm Prophylaxis ordered?: No 02/12/25 9896 Cosigner Signature (if applicable): CC: Dr. Julio Cordova MD; No Primary Care Physician Signed Normal [facility] Surgery Specimen Level Tami 02-12-2025 Surgery Specimen Level IV Patient Age/Sex Location Account Attending Physician ALEXSANDRA DIETZ 54/M MS3 [id number] Dr. Julio Cordova MD Specimen: [id number] Received: 02/15/25 Status: MICHAEL Quintana Num: [id number] Spec Type: BLADDER BX Subm Dr: Dr. Julio Cordova MD HEADER OPERATION: Cysto, transurethral resection bladder PRE-OP DIAGNOSIS: Large bladder mass TISSUE SUBMITTED: A- Bladder tumor MICROSCOPIC DIAGNOSIS A. Bladder tumor, transurethral resection: - Noninvasive papillary urothelial carcinoma, high grade - see Comment. - Lamina propria invasion is not identified. - Muscularis propria is not identified. COMMENT Selected slides/images were reviewed in intradepartmental consultation by Dr Daphney Marie and Dr Bjorn Santacruz (Community pathology division, [facility]). MICROSCOPIC DESCRIPTION Slides are reviewed. GROSS DESCRIPTION A. Received in formalin labeled with the patient's name and date of . Designated as bladder tumor is a 172 g, 14.5 x 11.5 x 3.6 cm aggregate of jensen-pink to light brown-perales rubbery to friable tissue fragments and clotted blood. Healthcare Management sections are submitted in 10 cassettes. MS 02/15/2025 CPT:75401 Patient Age/Sex Location Account Attending Physician ALEXSANDRA DIETZ 54/M MS3 [id number] Dr. Julio Cordova MD Signed (signature on file) Dr. Lyn Brown MD 02/25/25 1601 [facility] Comment on above: Performed By: #### P RACHELIV #### [facility] [address] [place], [address] MR/PATChaparro 02-11-2025 MR/PAT.ANTHONY [facility] Medical Records Department [address] [place] [address] PAT - Anesthesia 02/11/25 1402 MR#: [id number] Acct: [id number] Name: ALEXSANDRA DIETZ Rep #: [id number] : 1970 54 From: Branden Harris MD PCP: Status:PRE IN Y Race: Location: [facility] Pre-Assessment Diagnosis/Proposed Procedure Planned Operative Procedure(s): TURBT Anesthesia History Anesthesia History - help desk analyst: Anesthesia History - help desk analyst Hx Hospitalization No 02/10/25 12:12 Any Problems With Anesthesia No 02/10/25 12:12 Cholinesterase deficiency No 02/10/25 12:12 You/Your Family Experience No 02/10/25 12:12 fever (hyperthermia) with Relationship Recent Exposure to Contagious Disease Does patient have nerve No 02/10/25 12:12 stimulator Patient instructed to have device shut off --Does patient have Pacemaker or ICD? When Was Last Pacemaker Check QUESTION #4 FULL TEXT: You/Your Family Experience fever (hyperthermia) with Anesthesia Last Oral Intake Last Oral intake: Last Oral Intake NPO since Meds taken in AM with sips of water? Meds patient instructed to take am of surgery PONV PONV - help desk analyst: PONV - help desk analyst Female No 02/10/25 12:12 HX of Motion Sickness No 02/10/25 12:12 HX of N/V After Surgery No 02/10/25 12:12 Non-Smoker Yes 02/10/25 12:12 Duration of Surgery greater Yes 02/10/25 12:12 than 60 minutes Number of Risk Factors 2 02/10/25 12:12 PONV Score Moderate Risk 02/10/25 12:12 Respiratory Assessment Respiratory Assessment - help desk analyst: Respiratory Tract Infection Hx - help desk analyst Hx Respiratory Tract Infection No 02/10/25 12:12 STOP Sleep Apnea STOP Sleep Apnea - help desk analyst: STOP Sleep Apnea - help desk analyst Hx Hypertension Yes: NEVER MEDICATED 02/10/25 12:12 Hx Sleep Apnea No 02/10/25 12:12 CPAP BIPAP Do you snore loudly (louder Yes 02/10/25 12:12 than talking or can be heard Do you often feel tired/ No 02/10/25 12:12 fatigued/ sleepy during daytime? Has anyone observed you stop Yes 02/10/25 12:12 breathing during sleep? STOP Results Positive 02/10/25 12:12 QUESTION #5 FULL TEXT : Do you snore loudly (louder than talking or can be heard through closed doors)? 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 Specify any problems Hx of Preganancy in last 3 N/A 02/10/25 12:12 Months Nurse Filling Out Transfusion DSCHRIBER 02/10/25 12:12 Questions: Date: 02/10/25 02/10/25 12:12 Time: 12:15 02/10/25 12:12 Patient unable to answer at this time (ie. confused, unrespo /Reproducti on History /Reproducti ve History - help desk analyst: /Reproducti ve Hx- help desk analyst Hx Now No 02/10/25 12:12 Gestational Age (in weeks): EDC: Hx Hx Para Hx Section SAB No 02/10/25 12:12 [facility] Medical History (Updated 02/10/25 @ 12:22 by Terrie Caldwell) Wears glasses Bladder disease Restless legs Shortness of breath on exertion Non-smoker Leg cramps History of pain when walking History of edema Hypertension Home Medications ???Medication ???Instructions ???Recorded ???Last Taken ???Type NK 02/10/25 Unknown History Allergy/AdvReac Type Severity Reaction Status Date / Time No Known Allergies Allergy Verified 02/10/25 12:10 Surgical History (Updated 02/10/25 @ 12:22 by Terrie Caldwell) No history of previous surgery Social History Smoking Status: Never smoker Audit: Pertinent Findings Pertinent Findings EKG Perinent findings: February 10, 2025. Sinus rhythm. Probable LAE. Borderline left axis deviation. RSR' in V1 and V2. Additional pertinent findings: February 10, 2025. Creatinine is 2.39 Recommendation Anesthesia Recommendation Anesthesia recommendation: OPTIMIZED for anesthesia 02/11/25 1408 Date Branden Cunningham Signature: Date ____ (more content not included)... Normal [facility] .Auto Diffon 02-10-2025 Basophil, Absolute 0.0 10 3/mcL Normal 0.0-0.3 [facility] Comment on above: Performed By: #### A DIFF, BMP, CBC, GFR, ANEU #### [address] [address] Basophils/100 WBC (Bld) 0.4 % Normal 0.0-2.5 [facility] Comment on above: Performed By: #### A DIFF, BMP, CBC, GFR, ANEU #### [address] [address] Eosinophil, Absolute 0.4 10 3/mcL Normal 0.0-0.7 [facility] Comment on above: Performed By: #### A DIFF, BMP, CBC, GFR, ANEU #### [address] [address] Eosinophils/100 WBC (Bld) 4.2 % Normal 0.0-6.0 [facility] Comment on above: Performed By: #### A DIFF, BMP, CBC, GFR, ANEU #### [address] [address] Lymphocyte, Absolute 1.9 10 3/mcL Normal 0.9-4.3 [facility] Comment on above: Performed By: #### A DIFF, BMP, CBC, GFR, ANEU #### [address] [address] Lymphocytes/100 WBC (Bld) 19.2 % Low 20.0-40.0 [facility] Comment on above: Performed By: #### A DIFF, BMP, CBC, GFR, ANEU #### [address] [address] Monocyte, Absolute 0.8 10 3/mcL Normal 0.1-1.4 [facility] Comment on above: Performed By: #### A DIFF, BMP, CBC, GFR, ANEU #### [address] [address] Monocytes/100 WBC (Bld) 7.6 % Normal 2.0-13.0 [facility] Comment on above: Performed By: #### A DIFF, BMP, CBC, GFR, ANEU #### [address] [address] Neutrophils/100 WBC (Bld) 68.6 % Normal 50.0-75.0 [facility] Comment on above: Performed By: #### A DIFF, BMP, CBC, GFR, ANEU #### [address] [address] .GFRon 02-10-2025 Estimated Glomerular Filtration Rate 32 ml/min/1.73sqm Normal [facility] Comment on above: Result Comment: Stages of Chronic Kidney Disease (CKD) Stage Description eGFR(ml/min/1.73 sq.m.) CKD 1 Normal kidney function or >=90 normal kindney function with possible kidney damage (ex. Proteinuria) CKD 2 Kidney damage with mild loss 60-89 of kidney function CKD 3a Mild to moderate loss of kidney 45-59 function CKD 3b Moderate to severe loss of 30-44 of kindey function CKD 4 Severe loss of kidney function 15-29 CKD 5 Kidney failure <15 Note: (go live 2024) the eGFR calculation was updated to the 2020 CKD-EPI creatinine equation without a race factor to calculate the eGFR results. Performed By: #### A DIFF, BMP, CBC, GFR, ANEU #### [address] [address] .NEUABSon 02-10-2025 Neutrophil, Absolute 6.9 10 3/mcL Normal 2.3-8.1 [facility] Comment on above: Performed By: #### A DIFF, BMP, CBC, GFR, ANEU #### [address] [address] BMPon 02-10-2025 BUN/Creatinine Ratio 14 ratio Normal 7-27 [facility] Comment on above: Performed By: #### A DIFF, BMP, CBC, GFR, ANEU #### [place] [address] Calcium [Mass/Vol] 9.2 mg/dL Normal 8.4-10.2 [facility] Comment on above: Performed By: #### A DIFF, BMP, CBC, GFR, ANEU #### [place] [address] Chloride [Moles/Vol] 104 mmol/L Normal 98-107 [facility] Comment on above: Performed By: #### A DIFF, BMP, CBC, GFR, ANEU #### [place] [address] CO2 [Moles/Vol] 27 mmol/L Normal 22-29 [facility] Comment on above: Performed By: #### A DIFF, BMP, CBC, GFR, ANEU #### [place] [id number] Creatinine [Mass/Vol] 2.39 mg/dL High 0.67-1.17 [facility] Comment on above: Performed By: #### A DIFF, BMP, CBC, GFR, ANEU #### [place] [address] Electrolyte Balance 9.0 mEq/L Normal 4.0-15.0 [facility] Comment on above: Performed By: #### A DIFF, BMP, CBC, GFR, ANEU #### [place] [address] Glucose [Mass/Vol] 76 mg/dL Normal 70-105 [facility] Comment on above: Performed By: #### A DIFF, BMP, CBC, GFR, ANEU #### [address] [address] Potassium [Moles/Vol] 4.2 mmol/L Normal 3.5-5.1 [facility] Comment on above: Performed By: #### A DIFF, BMP, CBC, GFR, ANEU #### [address] [address] Sodium [Moles/Vol] 140 mmol/L Normal 136-145 [facility] Comment on above: Performed By: #### A DIFF, BMP, CBC, GFR, ANEU #### [place] [address] Urea nitrogen [Mass/Vol] 33 mg/dL High 7-18 [facility] Comment on above: Performed By: #### A DIFF, BMP, CBC, GFR, ANEU #### [address] [address] CBCon 02-10-2025 Erythrocyte distribution width (RBC) [Ratio] 13.6 % Normal 11.5-15.5 [facility] Comment on above: Performed By: #### A DIFF, BMP, CBC, GFR, ANEU #### [address] [address] Hematocrit (Bld) [Volume fraction] 33.0 % Low 40.0-52.0 [facility] Comment on above: Performed By: #### A DIFF, BMP, CBC, GFR, ANEU #### [address] [address] Hgb 11.1 G/dL Low 13.0-17.5 [facility] Comment on above: Performed By: #### A DIFF, BMP, CBC, GFR, ANEU #### [address] [address] MCH (RBC) [Entitic mass] 30.3 pg Normal 27.0-33.0 [facility] Comment on above: Performed By: #### A DIFF, BMP, CBC, GFR, ANEU #### [place] [address] MCHC 33.5 G/dL Normal 32.0-36.0 [facility] Comment on above: Performed By: #### A DIFF, BMP, CBC, GFR, ANEU #### [place] [address] MCV (RBC) [Entitic vol] 90.4 fL Normal 81.0-100.0 [facility] Comment on above: Performed By: #### A DIFF, BMP, CBC, GFR, ANEU #### [place] [address] Platelet 394 10 3/mcL Normal 150-450 [facility] Comment on above: Performed By: #### A DIFF, BMP, CBC, GFR, ANEU #### [place] [address] Platelet mean volume (Bld) [Entitic vol] 7.9 fL Normal 6.4-10.5 [facility] Comment on above: Performed By: #### A DIFF, BMP, CBC, GFR, ANEU #### [place] [address] RBC 3.65 10 6/mcL Low 4.50-6.00 [facility] Comment on above: Performed By: #### A DIFF, BMP, CBC, GFR, ANEU #### [place] [address] WBC 10.1 10 3/mcL Normal 4.5-10.8 [facility] Comment on above: Performed By: #### A DIFF, BMP, CBC, GFR, ANEU #### [place] [address] LABORATORYOrdered By: SYSTEM SYSTEM on 02-10-2025 Basophils (Bld) [#/Vol] 0.0 103/mcL Normal 0.0 - 0.3 10^3/mcL AO Workflow SS Basophils/100 WBC (Bld) 0.4 % Normal 0.0 - 2.5 % AO Workflow SS Calcium [Mass/Vol] 9.2 mg/dL Normal 8.4 - 10. 2 mg/dL AO ADM SS Chloride [Moles/Vol] 104 mmol/L Normal 98 - 10 7 mmol/L AO ADM SS CO2 [Moles/Vol] 27 mmol/L Normal 22 - 29 mmol/L AO ADM SS Creatinine [Mass/Vol] 2.39 mg/dL High 0.67 - 1.17 mg/dL AO ADM SS Electrolyte Balance 9.0 mEq/L Normal 4.0 - 15 .0 mEq/L AO ADM SS Eosinophil, Absolute 0.4 103/mcL Normal 0.0 - 0 .7 10^3/mcL AO Workflow SS Eosinophils/100 WBC (Bld) 4.2 % Normal 0.0 - 6.0 % AO Workflow SS Erythrocyte distribution width (RBC) [Ratio] 13.6 % Normal 11.5 - 15.5 % AO Workflow SS Estimated Glomerular Filtration Rate 32 ml/min/1.73sqm Invalid Interpretation Code AO Chemistry S Comment on above: Interpretive Data: Stages of Chronic Kidney Disease (CKD) Stage Description eGFR(ml/min/1.73 sq.m.) CKD 1 Normal kidney function or >=90 normal kindney function with possible kidney damage (ex. Proteinuria) CKD 2 Kidney damage with mild loss 60-89 of kidney function CKD 3a Mild to moderate loss of kidney 45-59 function CKD 3b Moderate to severe loss of 30-44 of kindey function CKD 4 Severe loss of kidney function 15-29 CKD 5 Kidney failure <15 Note: (go live 2024) the eGFR calculation was updated to the 2020 CKD-EPI creatinine equation without a race factor to calculate the eGFR results. Glucose [Mass/Vol] 76 mg/dL Normal 70 - 105 mg/dL AO ADM SS Hematocrit (Bld) [Volume fraction] 33.0 % Low 40.0 - 52.0 % AO Workflow SS Hemoglobin (Bld) [Mass/Vol] 11.1 G/dL Low 13.0 - 17.5 G/dL AO Workflow SS Lymphocytes (Bld) [#/Vol] 1.9 103/mcL Normal 0.9 - 4.3 10^3/mcL AO Workflow SS Lymphocytes/100 WBC (Bld) 19.2 % Low 20.0 - 40.0 % AO Workflow SS MCH (RBC) [Entitic mass] 30.3 pg Normal 27. 0 - 33.0 pg AO Workflow SS MCHC 33.5 G/dL Normal 32.0 - 36.0 G/dL AO Workflow SS MCV (RBC) [Entitic vol] 90.4 fL Normal 81.0 - 100.0 fL AO Workflow SS Monocytes (Bld) [#/Vol] 0.8 103/mcL Normal 0.1 - 1.4 10^3/mcL AO Workflow SS Monocytes/100 WBC (Bld) 7.6 % Normal 2.0 - 13.0 % AO Workflow SS Neutrophils (Bld) [#/Vol] 6.9 103/mcL Normal 2.3 - 8.1 10^3/mcL AO Workflow SS Neutrophils/100 WBC (Bld) 68.6 % Normal 50.0 - 75.0 % AO Workflow SS Platelet mean volume (Bld) [Entitic vol] 7.9 fL Normal 6.4 - 10.5 fL AO Workflow SS Platelets (Bld) [#/Vol] 394 103/mcL Normal 150 - 450 10^3/mcL AO Workflow SS Potassium [Moles/Vol] 4.2 mmol/L Normal 3.5 - 5.1 mmol/L AO ADM SS RBC (Bld) [#/Vol] 3.65 106/mcL Low 4.50 - 6.0 0 10^6/mcL AO Workflow SS Sodium [Moles/Vol] 140 mmol/L Normal 136 - 145 mmol/L AO ADM SS Urea nitrogen [Mass/Vol] 33 mg/dL High 7 - 18 mg/d L AO ADM SS Urea nitrogen/Creatinine [Mass ratio] 14 ratio Normal 7 - 27 ratio AO ADM SS WBC (Bld) [#/Vol] 10.1 103/mcL Normal 4.5 - 10.8 10^3/mcL AO Workflow SS Vital Signs Date Time Vital Sign Value Performing Clinician [facility] 02-14-2025 07:42-0400 Body temperature 97.7 [degF] Dr. Julio Cordova MD Work Phone: [facility] 02-14-2025 07:42-0400 Diastolic blood pressure 81 mm[Hg] Dr. Julio Cordova MD Work Phone: [facility] 02-14-2025 07:42-0400 Heart rate 60 /min Dr. Julio Cordova MD Work Phone: [facility] 02-14-2025 07:42-0400 Respiratory rate 16 /min Dr. Julio Cordova MD Work Phone: [facility] 02-14-2025 07:42-0400 SaO2% (BldA) [Mass fraction] 100 % Dr. Julio Cordova MD Work Phone: [facility] 02-14-2025 07:42-0400 Systolic blood pressure 134 mm[Hg] Dr. Julio Cordova MD Work Phone: [facility] 02-12-2025 17:47-0400 Body height 167.[address] Julio Cordova MD Work Phone: [facility] 02-12-2025 17:47-0400 Body mass index (BMI) [Ratio] 36.1 kg/m2 Dr. Julio Cordova MD Work Phone: [facility] 02-12-2025 17:47-0400 Body weight 101.[address] Julio Cordova MD Work Phone: [facility] 02-12-2025 17:00-0400 Inhaled oxygen flow rate 2 L/min Dr. Julio Cordova MD Work Phone: [facility] Encounters Encounter Date Encounter Type Care Provider Facility Start: 02-12-2025 End: 02-14-2025 Evaluation and management of inpatient Dr. Julio Cordova MD -[facility] Work Phone: Start: 02-10-2025 End: 02-10-[address] JULIO CORDOVA MD Facility:[facility] Start: 02-10-2025 End: 02-10-[address] JULIO CORDOVA MD [facility] Procedures Date Procedure Procedure Detail Performing Clinician Start: 02-14-[address] Julio Cordova MD Work Phone: Start: 02-12-2025 Transurethral resect ion of bladder neoplasm Dr. Julio Cordova MD Work Phone: Plan of Treatment Date Care Activity Detail Author Start: 02-14-2025 Patient discharge [facility] Start: 02-13-2025 Measuring intake and output [facility] Start: 02-12-2025 Deep breathing and c oughing exercises [facility] Start: 02-12-2025 Irrigation of urinary bladder [facility] Start: 02-12-2025 Oxygen therapy [facility] Start: 02-12-2025 Provision of activity privileges [facility] Start: 02-12-2025 Assessment of risk o f venous thromboembolism [facility] Start: 02-12-2025 Documentation procedure [facility] Start: 02-12-2025 End: 02-12-2025 Following clinical pathway protocol [facility] Start: 02-12-2025 Measuring intake and output [facility] Start: 02-12-2025 Taking patient vital signs [facility] Start: 02-12-2025 Vital signs measurements [facility] Start: 02-12-2025 End: 02-12-2025 [facility] Start: 02-12-2025 Admission procedure [facility] Payers Date Payer Category Payer Private Health Insurance [id number] 2025 Self-pay 2025 Unknown [id number] 1970 Unknown [id number] Unknown [id number] Social History Date Type Detail Facility Tobacco smoking status [facility] Start: 1970 Sex Assigned At Male [facility] Start: 02-10-2025 Sex Male (finding) [facility] Start: 02-10-[facility]25 [facility] Goals Date Patient Goal Desired Activity /State Functional Status Date Assessment Result Facility 02-14-2025 Functional status Chair Greg Villeda [facility] Work Phone: Mental Status Date Assessment Result Facility 02-14-2025 Cognitive function Voice/Name Greg Schmid [facility] Work Phone: Clinical Notes 02-12-2025 to 02-14-2025 Note Date & Type Note Facility 02-14-2025 Hospital Discharg e instructions Additional Instructions Date of Discharge: 02/14/25 [facility] Work Phone: 02-14-2025 Discharge summary Note Date/Time February 14, 2025 8:56am [facility] Medical Records Department [address] [place] [address] Discharge Summary 02/14/25 0855 MR#: [id number] Acct: [id number] Name: ALEXSANDRA DIETZ Rep #:[id number] : 1970 54 From: Julio Cordova MD PCP: Care Physician,No Primary Status :ADM IN Location: [place] [address] Providers Date of Admission: 02/12/25 Date of Discharge: 02/14/25 Primary Care Physician: No Primary Care Phys Diagnosis Discharge Diagnosis (1) Bladder cancer: Status: Acute Code(s): C67.9 - Malignant neoplasm of bladder, unspecified Medications at Discharge Home Medications ciprofloxacin HCl 500 mg tablet (Cipro) 500 mg PO BID #14 tabs 02/14/25 oxycodone 5 mg tablet 5 mg PO Q6H PRN pain 3 days #10 tabs 02/14/25 Hospital Course Summary of Care Provided Hospital Course: 54-year-old male was found to have an extremely large bladder tumor, he underwent a transurethral resection of this tumor took several hours on Saturday he stayed with a catheter for irrigation this morning we remove the catheter as long as he is able to urinate okay he can go home today without the catheter with antibiotics and some mild pain medicine and follow-up in my office for further care Weight / BMI Weight Weight: 101.437 kg Body Mass Index (BMI) 36.1 ABG / Lab / Microbiology Data 02/14/25 06:20 02/14/25 06:20 Laboratory: Laboratory Results - last 24 hr 02/14/25 06:20: WBC 11.0, RBC 2.75 L, Hgb 8.4 L, Hct 25.7 L, MCV 93.5, MCH 30.5,MCHC 32.7, RDW Std Deviation 45.7 H, RDW Coeff of Marialuisa 13.4, Plt Count 389, MPV 9.8, Immature Gran % (Auto) 0.400, Neut % (Auto) 69.7, Lymph % (Auto) 19.5, [place]% (Auto) 7.3, Eos % (Auto) 2.8, Baso % (Auto) 0.3, Absolute Neuts (auto) 7.7, Absolute Lymphs (auto) 2.15, Nucleated RBC % 0, Sodium 143, Potassium 3.9, Chloride 109 H, Carbon Dioxide 24.3, Anion Gap 10, BUN 23 H, Creatinine 1.57 H, Estim Creat Clear Calc 60.69, Est GFR (MDRD) Non-Af 52 L, BUN/Creatinine Ratio 14.3, Glucose 101 H, Calcium 8.5 D/C Instructions DC O2, CPAP, BIPAP Needs Home O2 Discharge instructions: No Meaningful Use Info Meaningful Use Meaningful Use Diagnoses (Choose all that apply): None applicable Discharge Plan Admission Admit Date/Time: 02/12/25 15:59 Primary Reason for Your Visit: very large bladder cancer Attending Provider: Julio Cordova Primary Care Provider: Care Physician,No Primary Discharge Orders/Prescriptions Prescriptions: New ciprofloxacin HCl [Cipro] 500 mg tablet 500 mg PO BID Qty: 14 0RF oxycodone 5 mg tablet 5 mg PO Q6H PRN (Reason: pain) 3 Days Qty: 10 0RF Referrals / Follow Up: Julio Cordova MD [Med Staff - Active Staff] - Care Physician,No Primary [Primary Care Provider] - Disposition Disposition (needs filled in before D/C Order can be placed): Home, Self Care 02/14/25 0856 <Electronically signed by Julio Cordova MD> Cosigner Signature (if applicable): CC: Dr. Julio Cordova MD; No Primary Care Physician~ Signed [facility] Work Phone: [phone]) 106-334409-07-2025 Discharge summary [facility] Medical Records Department [address] [place] [address] Discharge Summary 02/14/25 0855 MR#: [id number] Acct: [id number] Name: ALEXSANDRA DIETZ Rep #:[id number] : 1970 54 From: Julio Cordova MD PCP: Care Physician,No Primary Status :ADM IN Location: [facility] RA251-9 Providers Date of Admission: 02/12/25 Date of Discharge: 02/14/25 Primary Care Physician: No Primary Care Phys Diagnosis Discharge Diagnosis (1) Bladder cancer: Status: Acute Code(s): C67.9 - Malignant neoplasm of bladder, unspecified Medications at Discharge Home Medications ciprofloxacin HCl 500 mg tablet (Cipro) 500 mg PO BID #14 tabs 02/14/25 oxycodone 5 mg tablet 5 mg PO Q6H PRN pain 3 days #10 tabs 02/14/25 Hospital Course Summary of Care Provided Hospital Course: 54-year-old male was found to have an extremely large bladder tumor, he underwent a transurethral resection of this tumor took several hours on Saturday he stayed with a catheter for irrigation this morning we remove the catheter as long as he is able to urinate okay he can go home today without the catheter with antibiotics and some mild pain medicine and follow-up in my office for further care Weight / BMI Weight Weight: 101.437 kg Body Mass Index (BMI) 36.1 ABG / Lab / Microbiology Data 02/14/25 06:20 02/14/25 06:20 Laboratory: Laboratory Results - last 24 hr 02/14/25 06:20: WBC 11.0, RBC 2.75 L, Hgb 8.4 L, Hct 25.7 L, MCV 93.5, MCH 30.5,MCHC 32.7, RDW Std Deviation 45.7 H, RDW Coeff of Marialuisa 13.4, Plt Count 389, MPV 9.8, Immature Gran % (Auto) 0.400, Neut % (Auto) 69.7, Lymph % (Auto) 19.5, [place]% (Auto) 7.3, Eos % (Auto) 2.8, Baso % (Auto) 0.3, Absolute Neuts (auto) 7.7, Absolute Lymphs (auto) 2.15, Nucleated RBC % 0, Sodium 143, Potassium 3.9, Chloride 109 H, Carbon Dioxide 24.3, Anion Gap 10, BUN 23 H, Creatinine 1.57 H, Estim Creat Clear Calc 60.69, Est GFR (MDRD) Non-Af 52 L, BUN/Creatinine Ratio 14.3, Glucose 101 H, Calcium 8.5 D/C Instructions DC O2, CPAP, BIPAP Needs Home O2 Discharge instructions: No Meaningful Use Info Meaningful Use Meaningful Use Diagnoses (Choose all that apply): None applicable Discharge Plan Admission Admit Date/Time: 02/12/25 15:59 Primary Reason for Your Visit: very large bladder cancer Attending Provider: Julio Cordova Primary Care Provider: Care Physician,No Primary Discharge Orders/Prescriptions Prescriptions: New ciprofloxacin HCl [Cipro] 500 mg tablet 500 mg PO BID Qty: 14 0RF oxycodone 5 mg tablet 5 mg PO Q6H PRN (Reason: pain) 3 Days Qty: 10 0RF Referrals / Follow Up: Julio Cordova MD [Med Staff - Active Staff] - Care Physician,No Primary [Primary Care Provider] - Disposition Disposition (needs filled in before D/C Order can be placed): Home, Self Care 02/14/25 [facility]856 [facility]if applicable): CC: Dr. Julio Cordova MD; No Primary Care Physician~ Signed [facility]09-07-2025 [facility] Medical Records Department [address] [place] [address] Discharge Summary 02/14/25 0855 MR#: [id number] Acct: [id number] Name: ALEXSANDRA DIETZ Rep #: [id number] : 1970 54 From: Julio Cordova MD PCP: Care Physician,No Primary Status:ADM IN Location: [facility] [facility] SB875-9 Providers Date of Admission: 02/12/25 Date of Discharge: 02/14/25 Primary Care Physician: No Primary Care Phys Diagnosis Discharge Diagnosis (1) Bladder cancer: Status: Acute Code(s): C67.9 - Malignant neoplasm of bladder, unspecified Medications at Discharge Home Medications ciprofloxacin HCl 500 mg tablet (Cipro) 500 mg PO BID #14 tabs 02/14/25 oxycodone 5 mg tablet 5 mg PO Q6H PRN pain 3 days #10 tabs 02/14/25 Hospital Course Summary of Care Provided Hospital Course: 54-year-old male was found to have an extremely large bladder tumor, he underwent a transurethral resection of this tumor took several hours on Saturday he stayed with a catheter for irrigation this morning we remove the catheter as long as he is able to urinate okay he can go home today without the catheter with antibiotics and some mild pain medicine and follow-up in my office for further care Weight / BMI Weight Weight: 101.437 kg Body Mass Index (BMI) 36.1 ABG / Lab / Microbiology Data 02/14/25 06:20 02/14/25 06:20 Laboratory: Laboratory Results - last 24 hr 02/14/25 06:20: WBC 11.0, RBC 2.75 L, Hgb 8.4 L, Hct 25.7 L, MCV 93.5, MCH 30.5, MCHC 32.7, RDW Std Deviation 45.7 H, RDW Coeff of Marialuisa 13.4, Plt Count 389, MPV 9.8, Immature Gran % (Auto) 0.400, Neut % (Auto) 69.7, Lymph % (Auto) 19.5, [place] % (Auto) 7.3, Eos % (Auto) 2.8, Baso % (Auto) 0.3, Absolute Neuts (auto) 7.7, Absolute Lymphs (auto) 2.15, Nucleated RBC % 0, Sodium 143, Potassium 3.9, C hloride 109 H, Carbon Dioxide 24.3, Anion Gap 10, BUN 23 H, Creatinine 1.57 H, Estim Creat Clear Calc 60.69, Est GFR (MDRD) Non-Af 52 L, BUN/Creatinine Ratio 14.3, Glucose 101 H, Calcium 8.5 D/C Instructions DC O2, CPAP, BIPAP Needs Home O2 Discharge instructions: No Meaningful Use Info Meaningful Use Meaningful Use Diagnoses (Choose all that apply): None applicable Discharge Plan Admission Admit Date/Time: 02/12/25 15:59 Primary Reason for Your Visit: very large bladder cancer Attending Provider: Julio Cordova Primary Care Provider: Care Physician,Alisha Primary Discharge Orders/Prescriptions Prescriptions: New ciprofloxacin HCl [Cipro] 500 mg tablet 500 mg PO BID Qty: 14 0RF oxycodone 5 mg tablet 5 mg PO Q6H PRN (Reason: pain) 3 Days Qty: 10 0RF Referrals / Follow Up: Julio Cordova MD [Med Staff - Active Staff] - Care Physician,No Primary [Primary Care Provider] - Disposition Disposition (needs filled in before D/C Order can be placed): Home, Self Care 02/14/25 0856 Cosigner Signature (if applicable): CC: Dr. Julio Cordova MD; No Primary Care Physician [facility] Progress note Author Julio Cordova [facility] Note Date/Time February 13, 2025 [facility] [address] [place] [address] Progress Note - Urology 02/13/25 0734 MR#: [id number] Acct: [id number] Name: ALEXSANDRA DIETZ Rep #:[id number] : 1970 54 From: Julio Cordova MD PCP: Care Physician,No Primary Status :ADM IN Location: [facility] [place] PH911-9 Subjective Subjective Status post resection of extremely large mass in his bladder that was bladder cancer, continue with irrigation Hep-Lock fluids and start Lovenox he can ambulate with irrigation hopefully tomorrow will do a voiding trial. Objective Data Objective Data Vital Signs: Vital Signs Temp Pulse Resp BP Pulse Ox O2 Del Method O2 Flow Rate 99.2 F H 83 16 130/84 H 96 Room Air 2 02/13/25 05:36 02/13/25 05:36 02/13/25 05:36 02/13/25 05:36 02/13/25 05:36 02/13/25 05:36 02/12/25 17:00 Oxygen Flow Rate (L/min) 2 Oxygen Delivery Method Room Air Weight: 101.437 kg Body Mass Index (BMI) 36.1 Intake & Output: Intake and Output for Last 24 Hours 02/11/25 02/12/25 02/13/25 23:59 23:59 23:59 Intake Total 2150 / 2150 2350 / 2350 Output Total 2400 / 2400 1500 / 1500 Balance -250 / -250 850 / 850 Lab / Micro Data 02/13/25 06:06 02/13/25 06:06 Labs: Laboratory Results - last 24 hr 02/13/25 06:06: WBC 17.1 H, RBC 3.01 L, Hgb 9.4 L, Hct 27.7 L, MCV 92.0, MCH 31.2, MCHC 33.9, RDW Std Deviation 45.0 H, RDW Coeff of Marialuisa 13.3, Plt Count 404,MPV 9.5, Immature Gran % (Auto) 0.500, Neut % (Auto) 83.1 H, Lymph % (Auto) 9.8 L, [place] % (Auto) 6.5, Eos % (Auto) 0.0, Baso % (Auto) 0.1, Absolute Neuts (auto)14.2 H, Absolute Lymphs (auto) 1.68, Nucleated RBC % 0, Sodium 137, Potassium 4.3, Chloride 105, Carbon Dioxide 20.6 L, Anion Gap 12, BUN 28 H, Creatinine 1.96 H, Estim Creat Clear Calc 48.61 L, Est GFR (MDRD) Non-Af 40 L, BUN/Creatinine Ratio 14.1, Glucose 147 H, Calcium 8.2 02/13/25 0734 <Electronically signed by Julio Cordova MD> Cosigner Signature (if applicable): CC: ~ Signed [facility] Work Phone: 1(520) 885-988909-06-2025 Progress note [facility] Medical Records Department [address] [place] [address] Progress Note - Urology 02/13/25 0734 MR#: [id number] Acct: [id number] Name: ALEXSANDRA DIETZ Rep #:[id number] : 1970 54 From: Julio Cordova MD PCP: Care Physician,No Primary Status :ADM IN Location: MS3 [id number] Subjective Subjective Status post resection of extremely large mass in his bladder that was bladder cancer, continue withirrigation Hep-Lock fluids and start Lovenox he can ambulate with irrigation hopefully tomorrow will do a voiding trial. Objective Data Objective Data Vital Signs: Vital Signs Temp Pulse Resp BP Pulse Ox O2 Del Method O2 Flow Rate 99.2 F H 83 16 130/84 H 96 Room Air 2 02/13/25 05:36 02/13/25 05:36 02/13/25 05:36 02/13/25 05:36 02/13/25 05:36 02/13/25 05:36 02/12/25 17:00 Oxygen Flow Rate (L/min) 2 Oxygen Delivery Method Room Air Weight: 101.437 kg Body Mass Index (BMI) 36.1 Intake & Output: Intake and Output for Last 24 Hours 02/11/25 02/12/25 02/13/25 23:59 23:59 23:59 Intake Total 2150 / 2150 2350 / 2350 Output Total 2400 / 2400 1500 / 1500 Balance -250 / -250 850 / 850 Lab / Micro Data 02/13/25 06:06 02/13/25 06:06 Labs: Laboratory Results - last 24 hr 02/13/25 06:06: WBC 17.1 H, RBC 3.01 L, Hgb 9.4 L, Hct 27.7 L, MCV 92.0, MCH 31.2, MCHC 33.9, RDW Std Deviation 45.0 H, RDW Coeff of Marialuisa 13.3, Plt Count 404,MPV 9.5, Immature Gran % (Auto) 0.500, Neut % (Auto) 83.1 H, Lymph % (Auto) 9.8 L, [place] % (Auto) 6.5, Eos % (Auto) 0.0, Baso % (Auto) 0.1, Absolute Neuts (auto)14.2 H, Absolute Lymphs (auto) 1.68, Nucleated RBC % 0, Sodium 137, Potassium 4.3,Chloride 105, Carbon Dioxide 20.6 L, Anion Gap 12, BUN 28 H, Creatinine 1.96 H, Estim Creat Clear Calc 48.61 L, Est GFR (MDRD) Non-Af 40 L, BUN/Creatinine Ratio 14.1, Glucose 147 H, Calcium 8.2 02/13/25 0734 Cosigner Signature (if applicable): CC: ~ Signed [facility]09-05-2025 Consult note Author Branden Harris [facility] Note Date/Time February 12, 2025 9:29pm [facility] Medical Records Department [address] [place] [address] Anesthesia Postop Eval II 02/12/252128 MR#: [id number] Acct: [id number] Name: ALEXSANDRA DIETZ Rep #:[id number] : 1970 54 From: Branden Harris MD PCP: Care Physician,No Primary Status :ADM IN Y Race: C Location: MS3 MS303 -1 Anesthesia Postop Eval I Sum Postop Eval Completion status Anesthesia document: Postop Eval 1 completed: Yes Anesthesia Postop Eval I Summary Anesthesia Postop Eval I Summary: Anesthesia Postop Eval I: Assessment Summary Airway patent Yes 02/12/25 16:14 [email or web address] Spontaneous unlabored Yes 02/12/25 16:14 COLLECTIONS [email or web address] respirations Mental status Awake 02/12/25 16:14 [email or web address] nausea No 02/12/25 16:14 COLLECTIONS [email or web address] Vomiting No 02/12/25 16:14 COLLECTIONS [email or web address] Anesthesia Postop Eval I: Fluid Summary Crystalloid volume administer 1,700 02/12/25 16:14 COLLECTIONS [email or web address] (ml) Colloids volume administered ( ml) Blood Product volume administered (ml) Total IV fluid infused 1,700 02/12/25 16:14 [email or web address] Anesthesia Postop Eval I: Summary Notes Anesthesia Complication No 02/12/25 16:14 COLLECTIONS [email or web address] Anesthesia Complication Comment: Post-operative progress note Anesthesia: Postop Eval II Evaluation Mental status: Awake and Calm Pain Level: 1 nausea: No Vomiting: No Complications Anesthesia Complication: No 02/12/252128 <Electronically signed by Branden calles MD> Date _ Branden Harris MD Cosigner Signature: Date CC: ~ Signed [facility] Work Phone: 1(429) 933-947709-05-2025 Consult note [facility] Medical Records Department [address] [place] [address] Anesthesia Postop Eval II 02/12/252128 MR#: [id number] Acct: [id number] Name: ALEXSANDRA DIETZ Rep #:[id number] : 1970 54 From: Branden Harris MD PCP: Care Physician,No Primary Status :ADM IN Y Race: C Location: MS3 MS303 -1 Anesthesia Postop Eval I Sum Postop Eval Completion status Anesthesia document: Postop Eval 1 completed: Yes Anesthesia Postop Eval I Summary Anesthesia Postop Eval I Summary: Anesthesia Postop Eval I: Assessment Summary Airway patent Yes 02/12/25 16:14 [email or web address] Spontaneous unlabored Yes 02/12/25 16:14 COLLECTIONS [email or web address] respirations Mental status Awake 02/12/25 16:14 COLLECTIONS [email or web address] nausea No 02/12/25 16:14 COLLECTIONS [email or web address] Vomiting No 02/12/25 16:14 COLLECTIONS [email or web address] Anesthesia Postop Eval I: Fluid Summary Crystalloid volume administer 1,700 02/12/25 16:14 COLLECTIONS [email or web address] (ml) Colloids volume administered ( ml) Blood Product volume administered (ml) Total IV fluid infused 1,700 02/12/25 16:14 COLLECTIONS [email or web address] Anesthesia Postop Eval I: Summary Notes Anesthesia Complication No 02/12/25 16:14 COLLECTIONS [email or web address] Anesthesia Complication Comment: Post-operative progress note Anesthesia: Postop Eval II Evaluation Mental status: Awake and Calm Pain Level: 1 nausea: No Vomiting: No Complications Anesthesia Complication: No 02/12/25 2129 stevan FELDMAN> Date _ Branden Harris MD Cosigner Signature: Date CC: ~ Signed [facility]09-05-2025 Consult note Author Tim Zazueta [facility] Note Date/Time February 12, 2025 4:14pm [facility] Medical Records Department [address] [address] Anesthesia Postop Eval I 02/12/25 1613 MR#: [id number] Acct: [id number] Name: J LUISALEXSANDRA H Rep #:[id number] : 1970 54 From: Tim Zazueta CRNA PCP: Care Physician,No Primary Status :ADM IN Y Race: C Location: [place] [address] Anesthesia: Postop Eval I Current Vital Signs Temperature: 97.0 F Pulse Rate: 76 Blood Pressure: 80/43 Respiratory Rate: 16 Pulse Ox: 95 Oxygen Delivery Method: Room Air Assessment Airway patent: Yes Spontaneous unlabored respirations: Yes Mental status: Awake nausea: No Vomiting: No Anesthesia Complication: No Fluid Hydration Crystalloid volume administer (ml): 1,700 Total IV fluid infused: 1,700 Progress Note Anesthesia document: Postop Eval 1 completed: Yes 02/12/251613 <Electronically signed by Tim momin CRNA> Date _ Tim Zazueta CRNA Cosigner Signature: Date CC: ~ Signed [facility] Work Phone: [phone]) [phone] Evaluation note* Diagnosis Onset Date Resolution Status Admit Date Bladder cancer acute February 12, 2025 3:59pm [facility] Work Phone: [phone]) 537-351909-05-2025 Consult note [facility] Medical Records Department [address] [place] [address] Anesthesia Postop Eval I 02/12/251612 MR#: [id number] Acct: [id number] Name: ALEXSANDRA DIETZ Rep #:[id number] : 1970 54 From: Tim Zazueta CRNA PCP: Care Physician,No Primary Status :ADM IN Y Race: C Location: [place] [address] Anesthesia: Postop Eval I Current Vital Signs Temperature: 97.0 F Pulse Rate: 76 Blood Pressure: 80/43 Respiratory Rate: 16 Pulse Ox: 95 Oxygen Delivery Method: Room Air Assessment Airway patent: Yes Spontaneous unlabored respirations: Yes Mental status: Awake nausea: No Vomiting: No Anesthesia Complication: No Fluid Hydration Crystalloid volume administer (ml): 1,700 Total IV fluid infused: 1,700 Progress Note Anesthesia document: Postop Eval 1 completed: Yes 02/12/25 1614 y COLLECTIONS CURATOR> Date _ Tim Zazueta COLLECTIONS CURATOR Cosigner Signature: Date CC: ~ Signed [facility]09-05-2025 Procedure note [facility] Medical Records Department [address] [place] [address] Operative Report 02/12/25 1603 MR#: [id number] Acct: [id number] Name: ALEXSANDRA DIETZ Rep #:[id number] : 1970 54 From: Julio Cordova MD PCP: Care Physician,No Primary Status :ADM IN Location: [place] [address] Operative Report (Standard) Operative Information Date of Procedure: 02/12/25 Pre-Operative Diagnosis: Very large bladder tumor Post-Operative Diagnosis: The same Surgery/Procedure Performed: Resection of the tumor over 7 cm in size, difficultcase extra time automatic i threading machine feeder: No Type of Anesthesia: General RN Documented Start/Stop Times: Operation Date: 02/12/25 12:30 Case Time Into Pre-Op 02/12/25 10:45 Anesthesia Start 02/12/25 12:24 Into Room 02/12/25 12:24 Procedure Start 02/12/25 12:40 Procedure End 02/12/25 15:53 Anesthesia End 02/12/25 16:03 Out of Room 02/12/25 16:03 Procedure Start Time: 12:40 Procedure Stop Time: 16:04 Select all DRAINS/GRAFTS/IMPLANTS that apply: None Estimated Blood Loss: 500 cc Specimen collected: Yes Description of specimen(s) removed: Large bladder tumor Description of surgery: This is a 54-year-old male who unfortunately has been bleeding for about 5 yearsnow and has finallysought medical attention on the office a did an ultrasound and could see extremely large mass within the bladder difficult to tell if this mass was invasive into the bladder muscle or was just a verylarge papillary tumor I suspected the very large papillary tumor so again attempted do a complete resection of this tumor as long as it is safe. Patient was taken back to the operating room and underwent a general anesthetic with intubation andparalyzation and then went into the bladder with a 26 Frenchcontinuous-flow resectoscope essentially he had a papillary tumor that was coming from the right lateral wall left lateral wall and anterior bladder neck it was all extending into the middle of the bladder started off by resecting from themiddle of the bladder towards the patient's left took a long time was able to resect all the tumor coming off the left side when I got down to the muscle it did not appear to be in muscle invasive just extremely large nonmuscleinvasive bladder cancer and then I started resection on the right side and he worked my way all the way into the anterior bladder and was able to resect the entire tumor and then there is also tumor within the prostatic fossa so the resected tumor out from within the prostatic fossa cauterized is much as possible did have a lot of blood loss because a long case extremely long difficult case resecting a lot of tissue but in the end I felt like it resected the entire all the major tumors completely with a pry bring him back for a second look resection in a few weeks and 24 Liberian catheter was put in the bladder and continuous bladder irrigation he was taken back to the PACU in stable condition and will admit him to the hospital for irrigation after extremely long resectionextremely long time to resect took several hours Surgical Findings: Extremely large tumor in the bladder multiple areas extensively covering the bladder resected completely Complications Complications: No Admit VTE Documentation VTE Present on Admission: No VTE Mechan Device Prophylaxis: SCD's VTE Pharm Prophylaxis ordered?: No 02/12/25 1607 Cosigner Signature (if applicable): CC: Dr. Julio Cordova MD; No Primary Care Physician~ Signed [facility]09-05-2025 Consult note Author Branden Harris [facility] Note Date/Time February 12, 2025 12:00pm [facility] Medical Records Department [address] [place] [id number] Pre-Anesthesia Evaluation 02/12/25 1156 MR#: [id number] Acct: [id number] Name: ALEXSANDRA DIETZ Rep #:[id number] : 1970 54 From: Branden Harris MD PCP: Care Physician,No Primary Status :ADM IN Y Race: C Location: [place] [address] ASA Classification* ASA Classification ASA Classification: 2 Assessment & Plan Anesthesia* Anesthesia Assessment Anesthesia Assessment: Discussed sedation and/or anesthesia options, risks, benefits, and alternatives with patient/parents/legal guardian/POA. Questions invited. The patient/parents/legal guardian/POA seems to understand and agrees to proceedwith anesthesia plan. Reviewed the physical assessment, medical history, allergy history and patient home medications list prior to surgery/procedure/anesthetic and documented any changes. Performed airway and anesthesia risk assessments. Anesthesia Type Anesthesia Type: General History Source History Obtained from:: Patient and Chart Anesthesia Focused Assessment* Temperature: 98.0 F Pulse Rate: 63 Blood Pressure: 185/96 Respiratory Rate: 16 Pulse Ox: 100 Oxygen Delivery Method: Room Air Airway Assessment Mouth opens: >3 cm Mallampati Score: III Teeth Condition: Intact and Missing (Patient is missing right upper molar. 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 When Was Last Pacemaker Check QUESTION #4 FULL TEXT: You/Your Family Experience fever (hyperthermia) with Anesthesia Last Oral Intake Last Oral intake: Last Oral Intake NPO since 23:00 02/12/25 11:00 Meds taken in AM with sips of No 02/12/25 11:00 water? Meds patient instructed to take am of surgery PONV PONV - help desk analyst: PONV - help desk analyst Female No 02/10/25 12:12 HX of Motion Sickness No 02/10/25 12:12 HX of N/V After Surgery No 02/10/25 12:12 Non-Smoker Yes 02/10/25 12:12 Duration of Surgery greater Yes 02/10/25 12:12 than 60 minutes Number of Risk Factors 2 02/10/25 12:12 PONV Score Moderate Risk 02/10/25 12:12 Height & Weight Height & Weight: Anesthesia: Height & Weight Height 5 ft 6 in 02/12/25 11:00 Weight: 101.437 kg 02/12/25 11:00 Body Mass Index (BMI) 36.1 02/12/25 11:00 Respiratory Assessment Respiratory Assessment - help desk analyst: Respiratory Tract Infection Hx - help desk analyst Hx Respiratory Tract Infection No 02/10/25 12:12 STOP Sleep Apnea STOP Sleep Apnea - help desk analyst: STOP Sleep Apnea - help desk analyst Hx Hypertension Yes: NEVER MEDICATED 02/10/25 12:12 Hx Sleep Apnea No 02/10/25 12:12 CPAP BIPAP Do you snore loudly (louder Yes 02/10/25 12:12 than talking or can be heard Do you often feel tired/ No 02/10/25 12:12 fatigued/ sleepy during daytime? Has anyone observed you stop Yes 02/10/25 12:12 breathing during sleep? STOP Results Positive 02/10/25 12:12 QUESTION #5 FULL TEXT : Do you snore loudly (louder than talking or can be heard through closed doors)? 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 Specify any problems Hx of Preganancy in last 3 N/A 02/10/25 12:12 Months Nurse Filling Out Transfusion DSCHRIBER 02/10/25 12:12 & Questions: Date: 02/10/25 02/10/25 12:12 Time: 12:15 02/10/25 12:12 Patient unable to answer at this time (ie. confused, unrespo /Reproduction History /Reproductive History - help desk analyst: /Reproductive Hx- help desk analyst Hx Now No 02/10/25 12:12 Gestational Age (in weeks): EDC: Hx Hx Para Hx Section SAB No 02/10/25 12:12 Active Medications Active Medications: Current Medications Generic Name Dose Route Start Last Admin Trade Name Freq PRN Reason Stop Dose Admin Lactated Ringer's 1,000 mls @ 15 mls/hr 02/12/25 11:00 02/12/25 11:13 IV 15 mls/hr .Q48H ANGIE Administration PFSH Medical History Wears glasses Bladder disease Restless legs Shortness of breath on exertion Non-smoker Leg cramps History of pain when walking History of edema Hypertension Home Medications ?Medication ?Instructions ?Recorded ?Last Taken ?Type NK 02/10/25 Unknown History Allergy/AdvReac Type Severity Reaction Status Date / Time No Known Allergies Allergy Verified 02/12/25 10:59 Surgical History No history of previous surgery no surgical history Social History Smoking Status: Never smoker Review of Systems (Anesthesia) ROS Narrative System reviewed and no additional complaints, except as documented. 02/12/25 1200 <Electronically signed by Branden calles MD> Date _ Branden Harris MD Cosigner Signature: Date CC: ~ Signed [facility] Work Phone: [phone] 376-172609-05-2025 Consult note [facility] Medical Records Department [address] [place] [address] Pre-Anesthesia Evaluation 02/12/25 1156 MR#: [id number] Acct: [id number] Name: ALEXSANDRA DIETZ Rep #:[id number] : 1970 54 From: Branden Harris MD PCP: Care Physician,No Primary Status :ADM IN Y Race: C Location: [place] [address] ASA Classification* ASA Classification ASA Classification: 2 Assessment & Plan Anesthesia* Anesthesia Assessment Anesthesia Assessment: Discussed sedation and/or anesthesia options, risks, benefits, and alternatives with patient/parents/legal guardian/POA. Questions invited. The patient/parents/legal guardian/POA seems to understand and agrees to proceedwith anesthesia plan. Reviewed the physical assessment, medical history, allergy history and patient home medications list prior to surgery/procedure/anesthetic and documented any changes. Performed airway and anesthesia risk assessments. Anesthesia Type Anesthesia Type: General History Source History Obtained from:: Patient and Chart Anesthesia Focused Assessment* Temperature: 98.0 F Pulse Rate: 63 Blood Pressure: 185/96 Respiratory Rate: 16 Pulse Ox: 100 Oxygen Delivery Method: Room Air Airway Assessment Mouth opens: >3 cm Mallampati Score: III Teeth Condition: Intact and Missing (Patient is missing right upper molar. 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 When Was Last Pacemaker Check QUESTION #4 FULL TEXT: You/Your Family Experience fever (hyperthermia) with Anesthesia Last Oral Intake Last Oral intake: Last Oral Intake NPO since 23:00 02/12/25 11:00 Meds taken in AM with sips of No 02/12/25 11:00 water? Meds patient instructed to take am of surgery PONV PONV - help desk analyst: PONV - help desk analyst Female No 02/10/25 12:12 HX of Motion Sickness No 02/10/25 12:12 HX of N/V After Surgery No 02/10/25 12:12 Non-Smoker Yes 02/10/25 12:12 Duration of Surgery greater Yes 02/10/25 12:12 than 60 minutes Number of Risk Factors 2 02/10/25 12:12 PONV Score Moderate Risk 02/10/25 12:12 Height & Weight Height & Weight: Anesthesia: Height & Weight Height 5 ft 6 in 02/12/25 11:00 Weight: 101.437 kg 02/12/25 11:00 Body Mass Index (BMI) 36.1 02/12/25 11:00 Respiratory Assessment Respiratory Assessment - help desk analyst: Respiratory Tract Infection Hx - help desk analyst Hx Respiratory Tract Infection No 02/10/25 12:12 STOP Sleep Apnea STOP Sleep Apnea - help desk analyst: STOP Sleep Apnea - help desk analyst Hx Hypertension Yes: NEVER MEDICATED 02/10/25 12:12 Hx Sleep Apnea No 02/10/25 12:12 CPAP BIPAP Do you snore loudly (louder Yes 02/10/25 12:12 than talking or can be heard Do you often feel tired/ No 02/10/25 12:12 fatigued/ sleepy during daytime? Has anyone observed you stop Yes 02/10/25 12:12 breathing during sleep? STOP Results Positive 02/10/25 12:12 QUESTION #5 FULL TEXT : Do you snore loudly (louder than talking or can be heard through closeddoors)? 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 Specify any problems Hx of Preganancy in last 3 N/A 02/10/25 12:12 Months Nurse Filling Out Transfusion DSCHRIBER 02/10/25 12:12 & Questions: Date: 02/10/25 02/10/25 12:12 Time: 12:15 02/10/25 12:12 Patient unable to answer at this time (ie. confused, unrespo /Reproduction History /Reproductive History - help desk analyst: /Reproductive Hx- help desk analyst Hx Now No 02/10/25 12:12 Gestational Age (in weeks): EDC: Hx Hx Para Hx Section SAB No 02/10/25 12:12 Active Medications Active Medications: Current Medications Generic Name Dose Route Start Last Admin Trade Name Freq PRN Reason Stop Dose Admin Lactated Ringer's 1,000 mls @ 15 mls/hr 02/12/25 11:00 02/12/25 11:13 IV 15 mls/hr .Q48H ANGIE Administration PFSH Medical History Wears glasses Bladder disease Restless legs Shortness of breath on exertion Non-smoker Leg cramps History of pain when walking History of edema Hypertension Home Medications ?Medication ?Instructions ?Recorded ?Last Taken ?Type NK 02/10/25 Unknown History Allergy/AdvReac Type Severity Reaction Status Date / Time No Known Allergies Allergy Verified 02/12/25 10:59 Surgical History No history of previous surgery no surgical history Social History Smoking Status: Never smoker Review of Systems (Anesthesia) ROS Narrative System reviewed and no additional complaints, except as documented. 02/12/25 1200 la > Date _ Branden Bishopigner Signature: Date CC: ~ [facility] No data available for this section [facility] Discharge instructions No data available for this section [facility] Reason for referral (narrative)No reason for referral information availableWSelect Medical [facility] Work Phone: Summary Purpose Family History No Family History Records Found Advance Directives No Advanced Directives Records Found Advance Directive Response Recorded Date/ Time Do you have a Healthcare Power of Project Management Professor? No February 12, 2025 5:47pm Chief Complaint and Reason for Visit Reason for Visit Admit Date Bladder cancer February 12, 2025 3:59pm Additional Source Comments (unrecognized sect ion and content) No Status Records FoundNo Status Records Found INFORMATION SOURCE (unrecogn ized section and content) DATE CREATED AUTHOR 02/12/2025 [facility] DATE CREATED AUTHOR AUTHOR'S ORGANIZ ATION 03/04/2025 [facility] Care Teams (unrecognized sec tion and content) Team Status: Active Member Role/Relationship Status Dates No Primary Care Physician Primary Care Provider Active Team Status: Inactive Member Role/Relationship Status Dates Dr. Julio Cordova MD Admit Provider Active Start: February 12, 2025 End: February 14, 2025 Dr. Julio Cordova MD Attending Provider Active Start: February 12, 2025 End: February 14, 2025 Dr. Julio Cordova MD Referring Provider Active Start: February 12, 2025 End: February 14, 2025 No Primary Care Physician Primary Care Provider Active Start: February 12, 2025 End: February 14, 2025 FOR RECORDS PERTAINING TO PATIENTS WHO ARE OR HAVE BEEN ENROLLED IN A CHEMICAL DEPENDENCY/SUBSTANCEABUSE PROGRAM, SOME INFORMATION MAY BE OMITTED. This clinical summary was aggregated from multiple sources. Caution should be exercised in using it in the provision of clinical care. This summary normalizes information from multiple sources, and as a consequence, information in this document may materially change the coding, format and clinical context of patient data. In addition, data may be omitted in some cases. CLINICAL DECISIONS SHOULD BE BASED ON THE PRIMARY CLINICAL RECORDS. [employer] [facility]. provides no warranty or guarantee of the accuracy or completeness of information in this document.
== END | disposition home or self-care (01) ==
LOC: LABSPEC 15:06
PROVIDERS: Referring Provider Urology; Visit Provider Urology
DX: D41.4 Neoplasm of uncertain behavior of bladder (principal); C67.8 Malignant neoplasm of overlapping sites of bladder
CPT/HCPCS: 88305